=== PATIENT | male | born 1965 | race African-American/Black ===

== ENCOUNTER 2016-07-03 12:28 | Inpatient (IN) | payer OTHER ==
[2016-07-03 12:37] VITALS: BMI 27.2
--- NOTE | 2016-07-03 13:47 | HP ---
CIWA Score - CIWA Score Nausea/Vomitin-No Nausea/No Vomiting Muscle Tremors: 4-Moderate,w/Arms Extend Anxiety: 2 Agitation: 1-Slight > Activity Paroxysmal Sweats: 3 Orientation: 0-Oriented Tacttile Disturbances: 2-Mild Itch/Numbness/Burn Auditory Disturbances: 2-Mild Harshness/Frighten Visual Disturbances: 3-Moderate Sensitivity Headache: 3-Moderate CIWA-Ar Total Score: 20 Admission ROS S - HPI Chief Complaint: "I am here to stop using Alcohol and Drugs." Pt. is here to Detox from Alcohol. Allergies/Adverse Reactions: Allergies Allergy/AdvReac Type Severity Reaction Status Date / Time No Known Allergies Allergy Verified 07/03/16 12:48 History of Present Illness: Pt. is a 50 YO male here to Detox from alcohol. Pt. has had previous Detox and Rehab admissions at [facility]. Pt. also uses cocaine on an intermittent basis. Exam Limitations: No Limitations - Ebola screening Have you traveled outside of the country in the last 21 days: No Have you had contact with anyone from an Ebola affected area: No Have you been sick,other than usual withdrawal symptoms: No Do you have a fever: No - Review of Systems Constitutional: Diaphoresis, Malaise, Night Sweats, Changes in sleep, Unintentional Wgt. Loss (Lost approx. 40 lbs over last 6 months.) EENT: reports: Blurred Vision, Tearing, Other (Has Upper Denture.) Respiratory: reports: Cough, SOB with Exertion Cardiac: reports: Palpitations GI: reports: No Symptoms Reported : reports: No Symptoms Reported Musculoskeletal: reports: Back Pain, Neck Pain Integumentary: reports: No Symptoms Reported Neuro: reports: Headache, Tremors Endocrine: reports: No Symptoms Reported Hematology: reports: No Symptoms Reported Psychiatric: reports: Judgement Intact, Mood/Affect Appropiate, Orientated x3, Anxious, Depressed Other Systems: Reviewed and Negative Patient History - Patient Medical History Hx Anemia: No Hx Asthma: No Hx Chronic Obstructive Pulmonary Disease (COPD): No Hx Cancer: No Hx Cardiac Disorders: No Hx Congestive Heart Failure: No Hx Hypertension: Yes (ON MED-HYDROCHLOROTHIAZIDE) Hx Hypercholesterolemia: No Hx Pacemaker: No HX Cerebrovascular Accident: No Hx Seizures: No Hx Dementia: No Hx Diabetes: No Hx Gastrointestinal Disorders: No Hx Liver Disease: No Hx Genitourinary Disorders: No Hx Sexually Transmitted Disorders: No Hx Renal Disease (ESRD): No Hx Thyroid Disease: No Hx Human Immunodeficiency Virus (HIV): No (NEGATIVE HX) Hx Hepatitis C: No (NEVER TESTED.) Hx Depression: Yes (AND ANXIETY) Hx Suicide Attempt: No (PATIENT DENIES CURRENT SI / HI.) Hx Bipolar Disorder: No Hx Schizophrenia: No - Patient Surgical History Past Surgical History: No Hx Neurologic Surgery: No Hx Cataract Extraction: No Hx Cardiac Surgery: No Hx Lung Surgery: No Hx Breast Surgery: No Hx Breast Biopsy: No Hx Abdominal Surgery: No Hx Appendectomy: No Hx Cholecystectomy: No Hx Genitourinary Surgery: No Hx Section: No Hx Orthopedic Surgery: No Anesthesia Reaction: No - PPD History Previous Implant?: Yes Documented Results: Negative w/proof Implanted On Prior [facility] Admission?: Yes Date: 01/29/16 Results: 0 mm PPD to be Administered?: No - Reproductive History Patient is a Female of Child Bearing Age (11 -55 yrs old): No (PATIENT IS MALE.) - Smoking Cessation Smoking history: Current every day smoker Have you smoked in the past 12 months: Yes Aproximately how many cigarettes per day: 10 Cigars Per Day: 0 Hx Chewing Tobacco Use: No Initiated information on smoking cessation: Yes 'Breaking Loose' booklet given: 07/03/16 (GIVEN ON UNIT.) - Substance & Tx. History Hx Alcohol Use: Yes Hx Substance Use: Yes Substance Use Type: Alcohol, Cocaine Hx Substance Use Treatment: Yes (Previous Detox and Rehab admissions at [facility].) - Substances Abused Alcohol Route: Oral Frequency: Daily Amount used: 6 pk beer Age of first use: 15 Date of Last Use: 07/03/16 Cocaine Route: Smoking Frequency: Daily Amount used: $200 Age of first use: 17 Date of Last Use: 07/03/16 Family Disease History - Family Disease History Family History: Denies Admission Physical Exam S - Vital Signs Vital Signs: Vital Signs - 24 hr 07/03/16 12:32 Temperature 98.4 F Pulse Rate 67 Respiratory 18 Rate Blood Pressure 155/88 - Physical General Appearance: Yes: No Apparent Distress, Nourished, Appropriately Dressed , Tremorous HEENTM: Yes: Hearing grossly Normal, Normocephalic, Normal Voice, NAV, Pharynx Normal Respiratory: Yes: Chest Non-Tender, Lungs Clear, No Respiratory Distress Neck: Yes: No masses,lesions,Nodules, Supple, Trachea in good position Breast: Yes: Breast Exam Deferred Cardiology: Yes: Regular Rhythm, Regular Rate, S1, S2 Abdominal: Yes: Normal Bowel Sounds, Non Tender, Soft Genitourinary: Yes: Within Normal Limits Back: Yes: Decreased Range of Motion Musculoskeletal: Yes: Gait Steady, Back pain Extremities: Yes: Normal Range of Motion, Non-Tender, Tremors Neurological: Yes: Fully Oriented, Alert, Normal Mood/Affect, Normal Response Integumentary: Yes: Normal Color, Dry, Warm Lymphatic: Yes: Within Normal Limits - Diagnostic (1) Alcohol dependence with uncomplicated withdrawal Current Visit: Yes Status: Acute (2) Cocaine dependence, uncomplicated Current Visit: Yes Status: Acute (3) HTN (hypertension) Current Visit: Yes Status: Chronic Qualifiers: Hypertension type: essential hypertension Qualified Code(s): I10 - Essential (primary) hypertension (4) Nicotine dependence Current Visit: Yes Status: Chronic Qualifiers: Nicotine product type: cigarettes Substance use status: uncomplicated Qualified Code(s): F17.210 - Nicotine dependence, cigarettes, uncomplicated Cleared for Admission [facility] - Detox or Rehab [facility] Level of Care: Medically Managed (ADVISED PATIENT TO FOLLOW-UP WITH WELDING INSPECTOR / REHAB MEDICAL PROVIDER AFTER DISCHARGE FROM DETOX FOR GENERAL MEDICAL ASSESSMENT AND FOR HISTORY OF HYPERTENSION.) Detox Regimen/Protocol: Librium [facility] Breath Alcohol Content Breath Alcohol Content: 0 Urine Drug Screen - Results Drug Screen Negative: No Urine Drug Screen Results: KRISTA-Cocaine
[2016-07-03] MEDS ORDERED: P-EPHED 60MG/TRIPROLIDI 2.5MG TABLET PO PRN (14:05)
[2016-07-03] MEDS ORDERED: guaiFENesin/D-METHORPHAN HB 10 ML UNIT-DOSE CUPS PO PRN (14:05)
[2016-07-03] MEDS ORDERED: chlordiazePOXIDE HCL 25 MG CAPSULE PO ONE (14:05)
[2016-07-03] MEDS ORDERED: ACETAMINOPHEN 325 MG TABLET (FP) PO PRN (14:05)
[2016-07-03] MEDS ORDERED: chlordiazePOXIDE HCL 25 MG CAPSULE PO PRN (14:05)
[2016-07-03] MEDS ORDERED: IBUPROFEN 400 MG TABLET (FP) PO PRN (14:05)
[2016-07-03] MEDS ORDERED: MENTHOL/PHENOL 1 EACH UD MM PRN (14:05)
[2016-07-03] MEDS ORDERED: MAGNESIUM CITRATE 300 ML BOTTLE PO PRN (14:05)
[2016-07-03] MEDS ORDERED: MAGNESIUM HYDROX 2400MG/30ML ORAL SUSPENSION 30 ML CUP PO PRN (14:05)
[2016-07-03] MEDS ORDERED: diphenhydrAMINE HCL 50 MG CAPSULE PO PRN (14:05)
[2016-07-03] MEDS ORDERED: LOPERAMIDE HCL 2 MG CAPSULE PO PRN (14:05)
[2016-07-03] MEDS ORDERED: hydrOXYzine PAMOATE 50 MG CAPSULE (FP) PO PRN (14:05)
[2016-07-03] MEDS ORDERED: MAG HYDROX/AL HYDROX/SIMETH 30 ML UNIT-DOSE CUP PO PRN (14:05)
[2016-07-03] MEDS ORDERED: amLODIPine BESYLATE 5 MG TABLET (FP) PO SCH (14:15)
[2016-07-03] MEDS ORDERED: HYDROCHLOROTHIAZIDE 12.5 MG CAPSULE (FP) PO SCH (14:15)
[2016-07-03] MEDS: chlordiazePOXIDE HCL 25 MG CAPSULE PO SCH ×2 (17:44→22:07)
[2016-07-03] MEDS ORDERED: THIAMINE HCL 100 MG TABLET (FP) PO SCH (22:00)
[2016-07-04] MEDS: chlordiazePOXIDE HCL 25 MG CAPSULE PO SCH (05:40)
[2016-07-04 06:15] VITALS: BP 156/100; PULSE 54; TEMP 96.7
[2016-07-04] MEDS ORDERED: PRENATAL VITAMINS W/ FOLIC ACID TABLET (FP) PO SCH (10:00)
[2016-07-04 10:20] LABS: MCH 29.5 pg (25.7-33.7); MCHC 33.3 g/dl (32.0-35.9); MEAN CELL VOLUME 88.5 fl (80-96); MEAN PLT VOLUME 10.6 fl (7.5-11.1); PLATELET COUNT 140 K/MM3 (134-434); WHITE BLOOD COUNT 3.9 K/mm3 (4.0-10.0)
[2016-07-04 10:22] LABS: ALBUMIN 3.4 g/dl (3.4-5.0); BILIRUBIN,TOTAL 0.9 mg/dL (0.2-1.0); CALCIUM 8.7 mg/dL (8.5-10.1); CREATININE 1.3 mg/dL (0.7-1.3); TOT PROT 6.5 g/dl (6.4-8.2)
[2016-07-04 11:24] LABS: HIV 1 & 2 AB NEGATIVE; HIV 1 AGp24 NEGATIVE
--- NOTE | 2016-07-04 12:18 | DS ---
[facility] Detox Discharge Summary Admission Date: 07/03/16 Discharge Date: 07/04/16 - History Present History: Alcohol Dependence Pertinent Past History: HTN - Physical Exam Results Vital Signs: Vital Signs Temperature 96.7 F L 07/04/16 06:15 Pulse Rate 54 L 07/04/16 06:15 Respiratory Rate 18 07/04/16 06:15 Blood Pressure 156/100 07/04/16 06:15 O2 Sat by Pulse Oximetry (%) Pertinent Admission Physical Exam Findings: Withdrawal symptoms HTN, uncontrolled: offered standing dose of HCTZ and norvasc prior to leaving Laboratory Tests 07/04/16 07/04/16 07/04/16 08:00 08:00 08:00 WBC 3.9 L RBC 4.81 Hgb 14.2 Hct 42.5 MCV 88.5 MCHC 33.3 RDW 13.0 Plt Count 140 MPV 10.6 Sickle Cell Screen Sodium 142 Potassium 4.2 Chloride 104 Carbon Dioxide 30 Anion Gap 8 BUN 16 D Creatinine 1.3 Creat Clearance w eGFR 58.67 Random Glucose 91 Calcium 8.7 Total Bilirubin 0.9 AST 20 ALT 24 Alkaline Phosphatase 68 Total Protein 6.5 Albumin 3.4 RPR Titer HIV 1&2 Antibody Screen Negative HIV P24 Antigen Negative 07/04/16 07/04/16 08:00 08:20 WBC RBC Hgb Hct MCV MCHC RDW Plt Count MPV Sickle Cell Screen Negative Sodium Potassium Chloride Carbon Dioxide Anion Gap BUN Creatinine Creat Clearance w eGFR Random Glucose Calcium Total Bilirubin AST ALT Alkaline Phosphatase Total Protein Albumin RPR Titer Nonreactive HIV 1&2 Antibody Screen HIV P24 Antigen Labs noted - Medication Discharge Medications: Ambulatory Orders Amlodipine Besylate [Norvasc -] 5 mg PO DAILY #30 tablet 01/30/16 Hydrochlorothiazide [Hctz -] 12.5 mg PO DAILY #30 cap 01/30/16 - Diagnosis (1) Alcohol dependence with uncomplicated withdrawal Status: Acute (2) HTN (hypertension) Status: Chronic Qualifiers: Hypertension type: essential hypertension Qualified Code(s): I10 - Essential (primary) hypertension - AMA Did Patient Leave Against Medical Advice: No (Administratively discharged due to fighting on unit with peer)
[2016-07-04] MEDS ORDERED: chlordiazePOXIDE HCL 25 MG CAPSULE PO SCH (17:00)
--- NOTE | 2016-07-04 22:27 | EKG ---
Test Reason : Blood Pressure : / mmHG Vent. Rate : 059 BPM Atrial Rate : 059 BPM P-R Int : 140 ms QRS Dur : 088 ms QT Int : 418 ms P-R-T Axes : 025 033 024 degrees QTc Int : 413 ms SINUS BRADYCARDIA NONSPECIFIC ST ABNORMALITY INFERIOR LEADS T WAVE ABNORMALITY, CONSIDER ANTEROLATERAL ISCHEMIA ABNORMAL ECG NO PREVIOUS ECGS AVAILABLE Confirmed by SUKHJINDER MONTES MD ([id number]) on 07/04/2016 10:26:32 PM Referred By: Confirmed By:SUKHJINDER MONTES MD
[2016-07-05] MEDS ORDERED: chlordiazePOXIDE 5 MG CAPSULE PO SCH (17:00)
[2016-07-06] MEDS ORDERED: chlordiazePOXIDE HCL 10 MG CAPSULE PO SCH (17:00)
== END 2016-07-04 08:34 | disposition home or self-care (01) | DRG 774 ==
LOC: YASAS 12:28 → Y3N 13:45
PROVIDERS: ADMIT Internal Medicine; ATTEND Internal Medicine
PROC: HZ2ZZZZ Detoxification Services for Substance Abuse Treatment (ICD-10-PCS; principal; 2016-07-04)
DX: F10.230 Alcohol dependence with withdrawal, uncomplicated (principal); F14.20 Cocaine dependence, uncomplicated; F17.210 Nicotine dependence, cigarettes, uncomplicated; I10 Essential (primary) hypertension; F91.8 Other conduct disorders
CPT/HCPCS: 36415; 80053; 85027; 85660; 86593; 87389; 93005; 93010

== ENCOUNTER 2016-11-29 12:32 | Inpatient (IN) | payer OTHER ==
[2016-11-29 13:19] VITALS: BMI 27.2
--- NOTE | 2016-11-29 15:18 | HP ---
CIWA Score - CIWA Score Nausea/Vomitin-No Nausea/No Vomiting Muscle Tremors: 4-Moderate,w/Arms Extend Anxiety: 3 Agitation: 4-Moderately Restless Paroxysmal Sweats: 3 Orientation: 0-Oriented Tacttile Disturbances: 0-None Auditory Disturbances: 0-None Visual Disturbances: 0-None Headache: 2-Mild CIWA-Ar Total Score: 16 Admission ROS BHS - HPI Chief Complaint: I am here to get the help I need. Allergies/Adverse Reactions: Allergies Allergy/AdvReac Type Severity Reaction Status Date / Time No Known Allergies Allergy Verified 11/29/16 14:46 History of Present Illness: pt is a 50yr old male with a history of alcohol and cocaine dependence seeking detox for treatment. Exam Limitations: No Limitations - Ebola screening Have you traveled outside of the country in the last 21 days: No Have you had contact with anyone from an Ebola affected area: No Have you been sick,other than usual withdrawal symptoms: No Do you have a fever: No - Review of Systems Constitutional: Chills, Diaphoresis, Loss of Appetite, Night Sweats EENT: reports: No Symptoms Reported Respiratory: reports: No Symptoms reported Cardiac: reports: No Symptoms Reported GI: reports: Diarrhea, Poor Fluid Intake, Indigestion : reports: No Symptoms Reported Musculoskeletal: reports: Back Pain, Muscle Pain Integumentary: reports: Flushing, Sweating Neuro: reports: Headache, Tingling, Tremors Endocrine: reports: Excessive Sweating, Flushing, Intolerance to Cold, Intolerance to Heat Hematology: reports: No Symptoms Reported Psychiatric: reports: Judgement Intact, Mood/Affect Appropiate, Orientated x3, Agitated, Anxious Other Systems: Reviewed and Negative Patient History - Patient Medical History Hx Anemia: No Hx Asthma: No Hx Chronic Obstructive Pulmonary Disease (COPD): No Hx Cancer: No Hx Cardiac Disorders: No Hx Congestive Heart Failure: No Hx Hypertension: No Hx Hypercholesterolemia: No Hx Pacemaker: No HX Cerebrovascular Accident: No Hx Seizures: No Hx Dementia: No Hx Diabetes: No Hx Gastrointestinal Disorders: No Hx Liver Disease: No Hx Genitourinary Disorders: No Hx Sexually Transmitted Disorders: No Hx Renal Disease (ESRD): No Hx Thyroid Disease: No Hx Human Immunodeficiency Virus (HIV): No (NEGATIVE HX) Hx Hepatitis C: No Hx Depression: Yes Hx Suicide Attempt: No Hx Bipolar Disorder: No Hx Schizophrenia: No Other Medical History: insomnia - Patient Surgical History Past Surgical History: No Hx Neurologic Surgery: No Hx Cataract Extraction: No Hx Cardiac Surgery: No Hx Lung Surgery: No Hx Breast Surgery: No Hx Breast Biopsy: No Hx Abdominal Surgery: No Hx Appendectomy: No Hx Cholecystectomy: No Hx Genitourinary Surgery: No Hx Section: No Hx Orthopedic Surgery: No Anesthesia Reaction: No - PPD History Previous Implant?: Yes Documented Results: Negative w/proof Implanted On Prior [facility] Admission?: Yes Date: 01/29/16 Results: 0 mm PPD to be Administered?: No - Reproductive History Patient is a Female of Child Bearing Age (11 -55 yrs old): No - Smoking Cessation Smoking history: Current every day smoker Have you smoked in the past 12 months: Yes Aproximately how many cigarettes per day: 10 Cigars Per Day: 0 Hx Chewing Tobacco Use: No Initiated information on smoking cessation: Yes 'Breaking Loose' booklet given: 11/29/16 - Substance & Tx. History Hx Substance Use: Yes Substance Use Type: Alcohol, Cocaine Hx Substance Use Treatment: Yes ([facility] detox 2017) - Substances Abused Crack Route: Smoking Frequency: Daily Amount used: $150 Age of first use: 22 Date of Last Use: 11/28/16 Alcohol-beer/vodka Route: Oral Frequency: Daily Amount used: 2-6 pks./1 pt. Age of first use: 13 Date of Last Use: 11/29/16 Family Disease History - Family Disease History Family Disease History: Other: Father (etoh) Admission Physical Exam BHS - Vital Signs Vital Signs: Vital Signs - 24 hr 11/29/16 13:16 Temperature 98.9 F Pulse Rate 66 Respiratory 18 Rate Blood Pressure 146/88 - Physical General Appearance: Yes: Appropriately Dressed, Moderate Distress, Tremorous, Irritable, Sweating, Anxious HEENTM: Yes: Hearing grossly Normal, Normal Voice Respiratory: Yes: Lungs Clear, Normal Breath Sounds, No Respiratory Distress Neck: Yes: Within Normal Limits Breast: Yes: Within Normal Limits Cardiology: Yes: Regular Rhythm, Regular Rate, S1, S2 Abdominal: Yes: Normal Bowel Sounds, Non Tender, Soft Genitourinary: Yes: Within Normal Limits Back: Yes: Normal Inspection Musculoskeletal: Yes: full range of Motion Extremities: Yes: Normal Capillary Refill, Normal Inspection, Tremors Neurological: Yes: Fully Oriented, Alert, Normal Response Integumentary: Yes: Normal Color, Diaphoresis Lymphatic: Yes: Within Normal Limits - Diagnostic (1) Alcohol dependence with uncomplicated withdrawal Current Visit: Yes Status: Chronic (2) Cocaine dependence, uncomplicated Current Visit: Yes Status: Chronic (3) HTN (hypertension) Current Visit: Yes Status: Chronic Qualifiers: Hypertension type: essential hypertension Qualified Code(s): I10 - Essential (primary) hypertension (4) Nicotine dependence Current Visit: Yes Status: Chronic Qualifiers: Nicotine product type: cigarettes Substance use status: uncomplicated Qualified Code(s): F17.210 - Nicotine dependence, cigarettes, uncomplicated (5) Depression (emotion) Current Visit: No Status: Suspected Qualifiers: Depression Type: dysthymia Qualified Code(s): F34.1 - Dysthymic disorder Cleared for Admission S - Detox or Rehab [facility] Level of Care: Medically Managed Detox Regimen/Protocol: Librium [facility] Breath Alcohol Content Breath Alcohol Content: 0.025 Urine Drug Screen - Results Drug Screen Negative: No Urine Drug Screen Results: KRISTA-Cocaine
[2016-11-29] MEDS ORDERED: MAGNESIUM HYDROX 2400MG/30ML ORAL SUSPENSION 30 ML CUP PO PRN (15:20)
[2016-11-29] MEDS ORDERED: IBUPROFEN 400 MG TABLET (FP) PO PRN (15:20)
[2016-11-29] MEDS ORDERED: MENTHOL/PHENOL 1 EACH UD MM PRN (15:20)
[2016-11-29] MEDS ORDERED: MAG HYDROX/AL HYDROX/SIMETH 30 ML UNIT-DOSE CUP PO PRN (15:20)
[2016-11-29] MEDS ORDERED: LOPERAMIDE HCL 2 MG CAPSULE PO PRN (15:20)
[2016-11-29] MEDS ORDERED: chlordiazePOXIDE HCL 25 MG CAPSULE PO PRN (15:20)
[2016-11-29] MEDS ORDERED: guaiFENesin/D-METHORPHAN HB 10 ML UNIT-DOSE CUPS PO PRN (15:20)
[2016-11-29] MEDS ORDERED: ACETAMINOPHEN 325 MG TABLET (FP) PO PRN (15:20)
[2016-11-29] MEDS ORDERED: P-EPHED 60MG/TRIPROLIDI 2.5MG TABLET PO PRN (15:20)
[2016-11-29] MEDS ORDERED: NICOTINE POLACRILEX 4 MG GUM BUC PRN (15:20)
[2016-11-29] MEDS ORDERED: hydrOXYzine PAMOATE 50 MG CAPSULE (FP) PO PRN (15:20)
[2016-11-29] MEDS ORDERED: MAGNESIUM CITRATE 300 ML BOTTLE PO PRN (15:20)
[2016-11-29] MEDS ORDERED: chlordiazePOXIDE HCL 25 MG CAPSULE PO ONE (15:43)
[2016-11-29] MEDS: chlordiazePOXIDE HCL 25 MG CAPSULE PO SCH ×2 (17:49→22:53)
[2016-11-29] MEDS: THIAMINE HCL 100 MG TABLET (FP) PO SCH (22:53)
[2016-11-29] MEDS: diphenhydrAMINE HCL 50 MG CAPSULE PO PRN (22:54)
[2016-11-30] MEDS: chlordiazePOXIDE HCL 25 MG CAPSULE PO SCH ×4 (05:17→22:06)
[2016-11-30] MEDS: HYDROCHLOROTHIAZIDE 12.5 MG CAPSULE (FP) PO SCH (11:33)
[2016-11-30] MEDS: PRENATAL VITAMINS W/ FOLIC ACID TABLET (FP) PO SCH (11:33)
[2016-11-30] MEDS: amLODIPine BESYLATE 5 MG TABLET (FP) PO SCH (11:33)
[2016-11-30] MEDS: NICOTINE 21 MG/24 HOURS TOPICAL PATCH TD SCH (11:33)
--- NOTE | 2016-11-30 11:39 | PN ---
S CIWA - CIWA Score Nausea/Vomitin Muscle Tremors: 3 Anxiety: 3 Agitation: 2 Paroxysmal Sweats: 1-Minimal Palms Moist Orientation: 0-Oriented Tacttile Disturbances: 1-Very Mild Itch/Numbness Auditory Disturbances: 1-Very Mild Visual Disturbances: 1-Very Mild Sensitivity Headache: 2-Mild CIWA-Ar Total Score: 17 BHS Progress Note (SOAP) Subjective: ALERT,IRRITABLE,ANXIOUS,INTERRUPTED SLEEP,TREMOR Objective: 11/30/16 11:36 Vital Signs Temperature 98.1 F 11/30/16 06:11 Pulse Rate 50 L 11/30/16 06:11 Respiratory Rate 16 11/30/16 06:11 Blood Pressure 146/90 11/30/16 06:11 O2 Sat by Pulse Oximetry (%) EKG SINUS BRADYCARDIA 54/MIN INVERTED T IN 3 NO CHEST PAIN,NO SOB,NO DIZZINESS LABS PENDING Assessment: 11/30/16 11:38 WITHDRAWAL SYMPTOM Plan: CONTINUE DETOX
[2016-11-30 11:54] LABS: ALBUMIN 3.4 g/dl (3.4-5.0); ALK PHOS 79 U/L (45-117); ANION GAP 8 (8-16); BILIRUBIN,TOTAL 0.8 mg/dL (0.2-1.0); CALCIUM 8.7 mg/dL (8.5-10.1); CO2 27 mmol/L (21-32); CREATININE 1.2 mg/dL (0.7-1.3); GLUCOSE,RANDOM 91 mg/dL (74-106); SGOT/AST 19 U/L (15-37); SGPT/ALT 23 U/L (12-78); TOT PROT 6.2 g/dl (6.4-8.2)
--- NOTE | 2016-11-30 14:21 | EKG ---
Test Reason : Blood Pressure : / mmHG Vent. Rate : 054 BPM Atrial Rate : 054 BPM P-R Int : 138 ms QRS Dur : 096 ms QT Int : 438 ms P-R-T Axes : 030 022 018 degrees QTc Int : 415 ms SINUS BRADYCARDIA NONSPECIFIC ST AND T WAVE ABNORMALITY ABNORMAL ECG WHEN COMPARED WITH ECG OF 03-JUL-2016 15:14, ST NO LONGER ELEVATED IN LATERAL LEADS REPEAT EKG IF CLINICALLY INDICATED Confirmed by ZULY ORTIZ MD ([id number]) on 11/30/2016 2:21:32 PM Referred By: Confirmed By:ZULY ORTIZ MD
[2016-11-30 14:47] LABS: MCH 29.2 pg (25.7-33.7); MCHC 32.8 g/dl (32.0-35.9); MEAN CELL VOLUME 88.9 fl (80-96); MEAN PLT VOLUME 10.1 fl (7.5-11.1); PLATELET COUNT 157 K/MM3 (134-434); RDW 13.4 % (11.9-15.9); WHITE BLOOD COUNT 4.7 K/mm3 (4.0-10.0)
--- NOTE | 2016-11-30 15:16 | CONSULT ---
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 Substance Abuse History: Discussed with the patient.Mr Pillai confirms this report : Smoking Cessation. Smoking history: Current every day smoker. Have you smoked in the past 12 months: Yes. Aproximately how many cigarettes per day : 10. Cigars Per Day: 0. Hx Chewing Tobacco Use: No. Initiated information on smoking cessation: Yes. 'Breaking Loose' booklet given: 11/29/16. - Substance & Tx. History. Hx Substance Use: Yes. Substance Use Type: Alcohol, Cocaine. Hx Substance Use Treatment: Yes ([facility] detox 2017). - Substances Abused. Crack. Route: Smoking. Frequency: Daily. Amount used: $150. Age of first use: 22. Date of Last Use: 11/28/16. Alcohol-beer/ vodka. Route: Oral. Frequency: Daily. Amount used: 2-6 pks./1 pt. Age of first use: 13. Date of Last Use: 11/29/16 Medical History: Hypertension. Psychiatric History: Patient denies. Physical/Sexual Abuse/Trauma History: Patient denies. Additional Comment: Urine Drug Screen Results: KRISTA-Cocaine.Noted. Mental Status Exam - Mental Status Exam Alert and Oriented to: Time, Place, Person Cognitive Function: Good Patient Appearance: Well Groomed Mood: Euthymic Affect: Appropriate, Normal Range Patient Behavior: Appropriate, Cooperative Speech Pattern: Clear Voice Loudness: Normal Thought Process: Goal Oriented Thought Disorder: Not Present Hallucinations: Denies Suicidal Ideation: Denies Homicidal Ideation: Denies Insight/Judgement: Poor Sleep: Well Appetite: Good Muscle strength/Tone: Normal Gait/Station: Normal Psychiatric Findings - Problem List ([place] 1, 2,3) (1) Alcohol dependence with uncomplicated withdrawal Current Visit: Yes Status: Acute (2) Cocaine dependence, uncomplicated Current Visit: Yes Status: Acute (3) Nicotine dependence Current Visit: Yes Status: Acute Qualifiers: Nicotine product type: cigarettes Substance use status: uncomplicated Qualified Code(s): F17.210 - Nicotine dependence, cigarettes, uncomplicated (4) HTN (hypertension) Current Visit: Yes Status: Chronic Qualifiers: Hypertension type: essential hypertension Qualified Code(s): I10 - Essential (primary) hypertension - Initial Treatment Plan Initial Treatment Plan: Psychoeducation offered : patient responds with total indifference.Detoxification is under way.Observation.
[2016-11-30] MEDS: diphenhydrAMINE HCL 50 MG CAPSULE PO PRN (22:06)
[2016-11-30] MEDS: THIAMINE HCL 100 MG TABLET (FP) PO SCH (22:06)
[2016-12-01] MEDS: chlordiazePOXIDE HCL 25 MG CAPSULE PO SCH ×2 (06:33→10:39)
--- NOTE | 2016-12-01 10:08 | PN ---
S CIWA - CIWA Score Nausea/Vomitin Muscle Tremors: 3 Anxiety: 2 Agitation: 2 Paroxysmal Sweats: 1-Minimal Palms Moist Orientation: 0-Oriented Tacttile Disturbances: 1-Very Mild Itch/Numbness Auditory Disturbances: 1-Very Mild Visual Disturbances: 1-Very Mild Sensitivity Headache: 2-Mild CIWA-Ar Total Score: 16 S Progress Note (SOAP) Subjective: alert,irritable,anxious,interrupted sleep,tremor, Objective: 12/01/16 10:07 Vital Signs Temperature 98.2 F 12/01/16 10:03 Pulse Rate 56 L 12/01/16 10:03 Respiratory Rate 20 12/01/16 10:03 Blood Pressure 155/104 12/01/16 10:03 O2 Sat by Pulse Oximetry (%) Laboratory Last Values WBC 4.7 K/mm3 (4.0-10.0) 11/30/16 06:30 RBC 4.66 M/mm3 (4.00-5.60) 11/30/16 06:30 Hgb 13.6 GM/dL (11.7-16.9) 11/30/16 06:30 Hct 41.4 % (35.4-49) 11/30/16 06:30 MCV 88.9 fl (80-96) 11/30/16 06:30 MCH 29.2 pg (25.7-33.7) 11/30/16 06:30 MCHC 32.8 g/dl (32.0-35.9) 11/30/16 06:30 RDW 13.4 % (11.9-15.9) 11/30/16 06:30 Plt Count 157 K/MM3 (134-434) 11/30/16 06:30 MPV 10.1 fl (7.5-11.1) 11/30/16 06:30 Sodium 140 mmol/L (136-145) 11/30/16 06:30 Potassium 4.3 mmol/L (3.5-5.1) 11/30/16 06:30 Chloride 105 mmol/L (98-107) 11/30/16 06:30 Carbon Dioxide 27 mmol/L (21-32) 11/30/16 06:30 Anion Gap 8 (8-16) 11/30/16 06:30 BUN 19 mg/dL (7-18) H 11/30/16 06:30 Creatinine 1.2 mg/dL (0.7-1.3) 11/30/16 06:30 Creat Clearance w eGFR > 60 (>60) 11/30/16 06:30 Random Glucose 91 mg/dL (74-106) 11/30/16 06:30 Calcium 8.7 mg/dL (8.5-10.1) 11/30/16 06:30 Total Bilirubin 0.8 mg/dL (0.2-1.0) 11/30/16 06:30 AST 19 U/L (15-37) 11/30/16 06:30 ALT 23 U/L (12-78) 11/30/16 06:30 Alkaline Phosphatase 79 U/L (45-117) 11/30/16 06:30 Total Protein 6.2 g/dl (6.4-8.2) L 11/30/16 06:30 Albumin 3.4 g/dl (3.4-5.0) 11/30/16 06:30 RPR Titer Nonreactive (NONREACTIVE) 11/30/16 06:30 Assessment: 12/01/16 10:08 withdrawal symptom Plan: continue detox
[2016-12-01] MEDS: amLODIPine BESYLATE 5 MG TABLET (FP) PO SCH (10:39)
[2016-12-01] MEDS: HYDROCHLOROTHIAZIDE 12.5 MG CAPSULE (FP) PO SCH (10:39)
[2016-12-01] MEDS: PRENATAL VITAMINS W/ FOLIC ACID TABLET (FP) PO SCH (10:39)
[2016-12-01] MEDS: NICOTINE 21 MG/24 HOURS TOPICAL PATCH TD SCH (10:40)
[2016-12-01] MEDS: chlordiazePOXIDE 5 MG CAPSULE PO SCH ×2 (16:29→22:33)
[2016-12-01] MEDS: THIAMINE HCL 100 MG TABLET (FP) PO SCH (22:33)
[2016-12-01] MEDS: diphenhydrAMINE HCL 50 MG CAPSULE PO PRN (22:33)
[2016-12-02] MEDS: chlordiazePOXIDE 5 MG CAPSULE PO SCH (06:08)
--- NOTE | 2016-12-02 08:25 | PN ---
S Progress Note (SOAP) Subjective: ALERT,NO COMPLAINT Objective: 12/02/16 08:23 Vital Signs Temperature 97.7 F 12/02/16 06:11 Pulse Rate 60 12/02/16 06:11 Respiratory Rate 16 12/02/16 06:11 Blood Pressure 138/90 12/02/16 06:11 O2 Sat by Pulse Oximetry (%) Assessment: 12/02/16 08:23 NO WITHDRAWAL SYMPTOM Plan: STABLE FOR DISCHARGE TODAY,FOLLOW UP WITH AFTER CARE PROGRAM ARRANGEMENT
--- NOTE | 2016-12-02 08:28 | DS ---
[facility] Detox Discharge Summary Admission Date: 11/29/16 Discharge Date: 12/02/16 - History Present History: Alcohol Dependence, Cocaine Dependence Additional Comments: FOLLOW UP WITH AFTER CARE PROGRAM ARRANGEMENT Pertinent Past History: HYPERTENSION NICOTINE DEPENDENCE DEPRESSION - Physical Exam Results Vital Signs: Vital Signs Temperature 97.7 F 12/02/16 06:11 Pulse Rate 60 12/02/16 06:11 Respiratory Rate 16 12/02/16 06:11 Blood Pressure 138/90 12/02/16 06:11 O2 Sat by Pulse Oximetry (%) Pertinent Admission Physical Exam Findings: WITHDRAWAL SYMPTOM - Treatment Hospital Course: Detox Protocol Followed, Detoxed Safely, Responded well, Discharged Condition Good Patient has Accepted a Rehab Referral to: DECLINED - Medication Discharge Medications: Ambulatory Orders Amlodipine Besylate [Norvasc -] 5 mg PO DAILY #30 tablet 01/30/16 Hydrochlorothiazide [Hctz -] 12.5 mg PO DAILY #30 cap 01/30/16 - Diagnosis (1) Alcohol dependence with uncomplicated withdrawal Current Visit: Yes Status: Acute (2) Cocaine dependence, uncomplicated Current Visit: Yes Status: Acute (3) Nicotine dependence Current Visit: Yes Status: Acute Qualifiers: Nicotine product type: cigarettes Substance use status: uncomplicated Qualified Code(s): F17.210 - Nicotine dependence, cigarettes, uncomplicated (4) HTN (hypertension) Current Visit: Yes Status: Chronic Qualifiers: Hypertension type: essential hypertension Qualified Code(s): I10 - Essential (primary) hypertension (5) Alcohol-induced sleep disorder Current Visit: No Status: Acute (6) Substance-induced sleep disorder Current Visit: No Status: Acute (7) Alcohol-induced mood disorder Current Visit: No Status: Suspected (8) Depression (emotion) Current Visit: No Status: Suspected Qualifiers: Depression Type: dysthymia Qualified Code(s): F34.1 - Dysthymic disorder - AMA Did Patient Leave Against Medical Advice: No
[2016-12-02 09:28] VITALS: BP 153/98; PULSE 55; TEMP 97.9
[2016-12-02] MEDS ORDERED: chlordiazePOXIDE HCL 10 MG CAPSULE PO SCH (17:00)
== END 2016-12-02 08:50 | disposition home or self-care (01) | DRG 774 ==
LOC: YASAS 12:32 → Y6N 15:37
PROVIDERS: ADMIT Internal Medicine; ATTEND Internal Medicine
PROC: HZ2ZZZZ Detoxification Services for Substance Abuse Treatment (ICD-10-PCS; principal; 2016-11-29)
DX: F10.230 Alcohol dependence with withdrawal, uncomplicated (principal); F10.24 Alcohol dependence with alcohol-induced mood disorder; F10.282 Alcohol dependence with alcohol-induced sleep disorder; F14.20 Cocaine dependence, uncomplicated; F17.210 Nicotine dependence, cigarettes, uncomplicated; F19.282 Other psychoactive substance dependence with psychoactive substance-induced sleep disorder; F34.1 Dysthymic disorder; I10 Essential (primary) hypertension; R00.1 Bradycardia, unspecified
CPT/HCPCS: 36415; 80053; 85027; 86593; 93005; 93010

== ENCOUNTER 2017-04-21 15:38 | Emergency (ER) | payer OTHER ==
[2017-04-21 15:48] VITALS: BP 157/92; PULSE 73; TEMP 98.9; BMI 26.5
--- NOTE | 2017-04-21 16:24 | PDOC ---
History of Present Illness - General Chief Complaint: Laceration Stated Complaint: Laceration Time Seen by Provider: 04/21/17 15:51 History Source: Patient Exam Limitations: No Limitations - History of Present Illness Initial Comments: 04/21/17 16:19 trip and fall injured chin . no loc lac to chin and abrasion to the right cheek. Timing/Duration: reports: just prior to arrival Severity: Yes: mild Location: reports: face Past History - Past Medical History Allergies/Adverse Reactions: Allergies Allergy/AdvReac Type Severity Reaction Status Date / Time No Known Allergies Allergy Verified 04/21/17 15:46 Home Medications: Ambulatory Orders Amlodipine Besylate [Norvasc -] 5 mg PO DAILY #30 tablet 12/02/16 Hydrochlorothiazide [Hctz -] 12.5 mg PO DAILY #30 cap 12/02/16 Anemia: No Asthma: No Cancer: No Cardiac Disorders: No CVA: No COPD: No CHF: No Dementia: No Diabetes: No GI Disorders: No Disorders: No HTN: No Hypercholesterolemia: No Kidney Stones: No Liver Disease: No Seizures: No Thyroid Disease: No - Surgical History Abdominal Surgery: No Appendectomy: No Cardiac Surgery: No Cholecystectomy: No Lung Surgery: No Neurologic Surgery: No Orthopedic Surgery: No - Reproductive History Testicular Surgery: No - Suicide/Smoking/Psychosocial Hx Smoking History: Current every day smoker Have you smoked in the past 12 months: Yes Number of Cigarettes Smoked Daily: 5 Cigars Per Day: 0 Information on smoking cessation initiated: No 'Breaking Loose' booklet given: 03/16/17 Hx Alcohol Use: No Drug/Substance Use Hx: No Substance Use Type: None Hx Substance Use Treatment: Yes ([facility] detox 2017) *Physical Exam - Vital Signs Last Vital Signs Temp Pulse Resp BP Pulse Ox 98.9 F 73 20 157/92 99 04/21/17 15:46 04/21/17 15:46 04/21/17 15:46 04/21/17 15:46 04/21/17 15:46 - Physical Exam General Appearance: Yes: Nourished, Appropriately Dressed HEENT: positive: EOMI, NAV Neck: positive: Supple. negative: Tender Respiratory/Chest: positive: Lungs Clear, Normal Breath Sounds. negative: Chest Tender Cardiovascular: positive: Regular Rhythm, Regular Rate Integumentary: positive: Normal Color, Dry, Warm, Other (laceration to chin, abrasion to right cheek ) Neurologic: positive: Fully Oriented, Alert, Normal Mood/Affect, Normal Response , Motor Strength 5/5 Procedures - Laceration/Wound Repair Face Wound Length: 2.6 to 5.0 cm Wound Explored: clean Wound's Depth, Shape: into muscle, linear Irrigated w/ Saline: Yes Betadine Prep: Yes Anesthesia: 1% Lidocaine w/ Epi Amount of Anesthetic (ccs): 3 Wound Repaired With: Sutures Suture Size/Type: 4:0, nylon Number of Sutures: 6 Layer Closure: No Sterile Dressing Applied: Yes Medical Decision Making - Medical Decision Making 04/21/17 16:27 cc: mechanical trip and fall lac to chin pt denies LOC denies dental trauma abrasion to the cheek, lac to the chin inside lower lip with superficial abrasion/laceration no active bleeding sutured closed wound care to the abrasions to cheek bacitracin placed pt states his tetanus is UTD *DC/Admit/Observation/Transfer Diagnosis at time of Disposition: Abrasion, Laceration - Discharge Dispostion Disposition: HOME Condition at time of disposition: Good - Referrals - Patient Instructions Printed Discharge Instructions: DI for Laceration Repair Additional Instructions: keep clean and dry apply bacitracin ointment once a day to the abrasions and laceration 7 days return for suture removal to the chin - Post Discharge Activity
== END 2017-04-21 16:53 | disposition home or self-care (01) ==
LOC: JERFT 15:38
PROC: 0JQ10ZZ Repair Face Subcutaneous Tissue and Fascia, Open Approach (ICD-10-PCS; principal; 2017-04-21)
DX: S01.81XA Laceration without foreign body of other part of head, initial encounter (principal); S00.81XA Abrasion of other part of head, initial encounter; W18.39XA Other fall on same level, initial encounter; Y93.89 Activity, other specified; Y92.89 Other specified places as the place of occurrence of the external cause; Y99.8 Other external cause status
CPT/HCPCS: 99281-25

== ENCOUNTER 2017-07-17 08:51 | Inpatient (IN) | payer OTHER ==
[2017-07-17 09:27] VITALS: BMI 28.7
--- NOTE | 2017-07-17 10:15 | HP ---
CIWA Score - CIWA Score Nausea/Vomitin Muscle Tremors: 3 Anxiety: 3 Agitation: 3 Paroxysmal Sweats: 1-Minimal Palms Moist Orientation: 0-Oriented Tacttile Disturbances: 2-Mild Itch/Numbness/Burn Auditory Disturbances: 2-Mild Harshness/Frighten Visual Disturbances: 0-None Headache: 2-Mild CIWA-Ar Total Score: 19 Admission ROS BHS - HPI Chief Complaint: i need help to stop drinking alcohol and cocaine Allergies/Adverse Reactions: Allergies Allergy/AdvReac Type Severity Reaction Status Date / Time No Known Allergies Allergy Verified 07/17/17 09:13 History of Present Illness: THIS 51 YEARS OLD MALE WITH ALCOHOL AND COCAINE DEPENDENCE,SEEKING DETOX, WITHDRAWAL SYMPTOM,LAST TREATMENT ARMS AND ACRES IN 05/19 MULTIPLE ADMISSIONS IN DETOX HYPERTENSION DEPRESSION NICOTINE DEPENDENCE LONGEST PERIOD OF SOBRIETY 4 YEARS SURGERY OF FX OF RIGHT MALCOLM IN 05/19,LIPOMA OF SCALP 06/19 Exam Limitations: No Limitations - Ebola screening Have you traveled outside of the country in the last 21 days: No (N) Have you had contact with anyone from an Ebola affected area: No Have you been sick,other than usual withdrawal symptoms: No Do you have a fever: No - Review of Systems Constitutional: Loss of Appetite, Malaise, Night Sweats, Changes in sleep, Weakness EENT: reports: Nose Congestion Cardiac: reports: No Symptoms Reported GI: reports: Diarrhea, Nausea, Vomiting, Abdominal cramping : reports: No Symptoms Reported Musculoskeletal: reports: Back Pain, Muscle Pain Integumentary: reports: Dryness Neuro: reports: Headache, Tremors Endocrine: reports: No Symptoms Reported Hematology: reports: No Symptoms Reported Psychiatric: reports: No Sypmtoms Reported, Judgement Intact, Mood/Affect Appropiate, Orientated x3, Depressed Patient History - Patient Medical History Hx Anemia: No Hx Asthma: No Hx Chronic Obstructive Pulmonary Disease (COPD): No Hx Cancer: No Hx Cardiac Disorders: No Hx Congestive Heart Failure: No Hx Hypertension: Yes (NON COMLIANCE DID NOT TAKE MADICATION FOR 6 WEEKS) Hx Hypercholesterolemia: No Hx Pacemaker: No HX Cerebrovascular Accident: No Hx Seizures: No Hx Dementia: No Hx Diabetes: No Hx Gastrointestinal Disorders: No Hx Liver Disease: No Hx Genitourinary Disorders: No Hx Sexually Transmitted Disorders: No Hx Renal Disease (ESRD): No Hx Thyroid Disease: No Hx Human Immunodeficiency Virus (HIV): No (NEGATIVE HX LAST 2012) Hx Hepatitis C: No Hx Depression: Yes (NO MED) Hx Suicide Attempt: No Hx Bipolar Disorder: No Hx Schizophrenia: No Other Medical History: NO SUICIDAL,NO HOMICIDAL - Patient Surgical History Past Surgical History: Yes Hx Neurologic Surgery: No Hx Cataract Extraction: No Hx Cardiac Surgery: No Hx Lung Surgery: No Hx Breast Surgery: No Hx Breast Biopsy: No Hx Abdominal Surgery: No Hx Appendectomy: No Hx Cholecystectomy: No Hx Genitourinary Surgery: No Hx Section: No Hx Orthopedic Surgery: Yes ( 05/19) Other Surgical History: LIPOMA BACK OF HEAD Anesthesia Reaction: No - PPD History Previous Implant?: Yes Documented Results: Negative w/proof Implanted On Prior [facility] Admission?: Yes Date: 01/29/16 Results: 0 mm PPD to be Administered?: Yes - Reproductive History Patient : No - Smoking Cessation Smoking history: Current every day smoker Have you smoked in the past 12 months: Yes Aproximately how many cigarettes per day: 8 Cigars Per Day: 0 Hx Chewing Tobacco Use: No Initiated information on smoking cessation: Yes 'Breaking Loose' booklet given: 07/17/17 - Substance & Tx. History Hx Alcohol Use: Yes Hx Substance Use: Yes Substance Use Type: Alcohol, Cocaine Hx Substance Use Treatment: Yes ([facility] IN 05/19) - Substances Abused Cocaine Route: Smoking Frequency: Daily Amount used: 2 GRAM Age of first use: 26 Date of Last Use: 07/16/17 ETOH Route: Oral Frequency: Daily Amount used: 2 PINT VODKA, 2-40 OZ BEER Age of first use: 19 Date of Last Use: 07/16/17 Family Disease History - Family Disease History Family Disease History: Other: Father (etoh) Admission Physical Exam BHS - Vital Signs Vital Signs: Vital Signs - 24 hr 07/17/17 09:25 Temperature 97.1 F L Pulse Rate 81 Respiratory 18 Rate Blood Pressure 166/119 - Physical General Appearance: Yes: Moderate Distress, Tremorous, Irritable, Sweating, Anxious HEENTM: Yes: Normal ENT Inspection, NAV, Pharynx Normal Respiratory: Yes: Lungs Clear, Normal Breath Sounds, No Respiratory Distress Neck: Yes: Within Normal Limits, Supple, Trachea in good position Breast: Yes: Within Normal Limits Cardiology: Yes: Within Normal Limits, Regular Rhythm, Regular Rate, S1, S2 Abdominal: Yes: Normal Bowel Sounds, Non Tender, Flat, Soft, Pulsatile Mass Genitourinary: Yes: Within Normal Limits Back: Yes: Within Normal Limits, Muscle Spasm Musculoskeletal: Yes: Within Normal Limits, full range of Motion, Back pain, Muscle Pain Extremities: Yes: Within Normal Limits, Normal Range of Motion, Tremors Neurological: Yes: 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 II-XII NML intact, Fully Oriented, Alert, Motor Strength 5/5 Integumentary: Yes: Dry Lymphatic: Yes: Within Normal Limits - Diagnostic (1) Alcohol dependence with uncomplicated withdrawal Current Visit: Yes Status: Acute (2) Cocaine dependence, uncomplicated Current Visit: Yes Status: Acute (3) Nicotine dependence Current Visit: Yes Status: Acute Qualifiers: Nicotine product type: cigarettes Substance use status: in withdrawal Qualified Code(s): F17.213 - Nicotine dependence, cigarettes, with withdrawal (4) HTN (hypertension) Current Visit: No Status: Chronic Qualifiers: Hypertension type: essential hypertension Qualified Code(s): I10 - Essential (primary) hypertension (5) Depression Current Visit: Yes Status: Acute (6) Right hand fracture Current Visit: Yes Status: Acute Cleared for Admission [facility] - Detox or Rehab [facility] Level of Care: Medically Managed Detox Regimen/Protocol: Librium [facility] Breath Alcohol Content Breath Alcohol Content: 0 Urine Drug Screen - Results Drug Screen Negative: No Urine Drug Screen Results: KRISTA-Cocaine
[2017-07-17] MEDS ORDERED: MAGNESIUM CITRATE 300 ML BOTTLE PO PRN (10:24)
[2017-07-17] MEDS ORDERED: IBUPROFEN 400 MG TABLET (FP) PO PRN (10:24)
[2017-07-17] MEDS ORDERED: ACETAMINOPHEN 325 MG TABLET (FP) PO PRN (10:24)
[2017-07-17] MEDS ORDERED: hydrOXYzine PAMOATE 50 MG CAPSULE (FP) PO PRN (10:24)
[2017-07-17] MEDS ORDERED: LOPERAMIDE HCL 2 MG CAPSULE PO PRN (10:24)
[2017-07-17] MEDS ORDERED: MAG HYDROX/AL HYDROX/SIMETH 30 ML UNIT-DOSE CUP PO PRN (10:24)
[2017-07-17] MEDS ORDERED: chlordiazePOXIDE HCL 25 MG CAPSULE PO PRN (10:24)
[2017-07-17] MEDS ORDERED: guaiFENesin/D-METHORPHAN HB 10 ML UNIT-DOSE CUPS PO PRN (10:24)
[2017-07-17] MEDS ORDERED: chlordiazePOXIDE HCL 25 MG CAPSULE PO ONE (10:24)
[2017-07-17] MEDS ORDERED: P-EPHED 60MG/TRIPROLIDI 2.5MG TABLET PO PRN (10:24)
[2017-07-17] MEDS ORDERED: MAGNESIUM HYDROX 2400MG/30ML ORAL SUSPENSION 30 ML CUP PO PRN (10:24)
[2017-07-17] MEDS ORDERED: MENTHOL/PHENOL 1 EACH UD MM PRN (10:24)
[2017-07-17] MEDS ORDERED: cloNIDine HCL 0.1 MG TABLET PO ONE (10:28)
[2017-07-17] MEDS: HYDROCHLOROTHIAZIDE 12.5 MG CAPSULE (FP) PO SCH (12:08)
[2017-07-17] MEDS: amLODIPine BESYLATE 5 MG TABLET (FP) PO SCH (12:08)
--- NOTE | 2017-07-17 16:26 | PN ---
B[facility] Progress Note Note: EKG shows sinus bradycardia at 59 bpm, QTc of 421. Normal EKG
[2017-07-17] MEDS: chlordiazePOXIDE HCL 25 MG CAPSULE PO SCH ×2 (17:34→22:11)
[2017-07-17 17:43] LABS: URINE APPEARANCE CLOUDY; URINE BILIRUBIN NEGATIVE (NEGATIVE); URINE BLOOD NEGATIVE (NEGATIVE); URINE COLOR AMBER; URINE GLUCOSE (UA) NEGATIVE (NEGATIVE); URINE KETONE 1+ (NEGATIVE); URINE LEUK ESTERASE NEGATIVE (NEGATIVE); URINE NITRITE NEGATIVE (NEGATIVE)
[2017-07-17 17:45] LABS: URINE PROTEIN 1+ (NEGATIVE)
[2017-07-17 17:50] LABS: EPI CELLS RARE /HPF (FEW); URINE BACTERIA MODERATE /hpf (NONE SEEN); URINE HYALINE CAST 50 /lpf; URINE MUCUS MANY
[2017-07-17] MEDS: THIAMINE HCL 100 MG TABLET (FP) PO SCH (22:11)
--- NOTE | 2017-07-17 23:56 | EKG ---
Test Reason : Blood Pressure : / mmHG Vent. Rate : 059 BPM Atrial Rate : 059 BPM P-R Int : 140 ms QRS Dur : 086 ms QT Int : 426 ms P-R-T Axes : 053 030 034 degrees QTc Int : 421 ms POOR DATA QUALITY, INTERPRETATION MAY BE ADVERSELY AFFECTED SINUS BRADYCARDIA OTHERWISE NORMAL ECG WHEN COMPARED WITH ECG OF 29-NOV-2016 16:44, ST ELEVATION NOW PRESENT IN LATERAL LEADS T WAVE INVERSION NO LONGER EVIDENT IN ANTERIOR LEADS Confirmed by VANI GARDNER MD ([id number]) on 07/17/2017 11:56:25 PM Referred By: Confirmed By:VANI GARDNER MD
[2017-07-18] MEDS: chlordiazePOXIDE HCL 25 MG CAPSULE PO SCH ×4 (06:01→22:11)
--- NOTE | 2017-07-18 10:06 | PN ---
[facility] CIWA - CIWA Score Nausea/Vomitin-No Nausea/No Vomiting Muscle Tremors: 3 Anxiety: 4-Mod. Anxious/Guarded Agitation: 3 Paroxysmal Sweats: 1-Minimal Palms Moist Orientation: 0-Oriented Tacttile Disturbances: 3-Moderate Itch/Numb/Burn Auditory Disturbances: 0-None Visual Disturbances: 0-None Headache: 0-None Present (`) CIWA-Ar Total Score: 14 BHS Progress Note (SOAP) Subjective: ANXIETY,SWEATS,INTERMITTENT SLEEP. Objective: 07/18/17 10:06 Vital Signs Temperature 98.0 F 07/18/17 09:00 Pulse Rate 60 07/18/17 09:00 Respiratory Rate 18 07/18/17 09:00 Blood Pressure 128/79 07/18/17 09:00 O2 Sat by Pulse Oximetry (%) Laboratory Last Values Urine Color Elisa 07/17/17 17:00 Urine Appearance Cloudy 07/17/17 17:00 Urine pH 5.0 (5.0-8.0) 07/17/17 17:00 Ur Specific [place] 1.028 (1.001-1.035) 07/17/17 17:00 Urine Protein 1+ (NEGATIVE) H 07/17/17 17:00 Urine Glucose (UA) Negative (NEGATIVE) 07/17/17 17:00 Urine Ketones 1+ (NEGATIVE) H 07/17/17 17:00 Urine Blood Negative (NEGATIVE) 07/17/17 17:00 Urine Nitrite Negative (NEGATIVE) 07/17/17 17:00 Urine Bilirubin Negative (NEGATIVE) 07/17/17 17:00 Urine Urobilinogen 2.0 mg/dL (0.2-1.0) 07/17/17 17:00 Ur Leukocyte Esterase Negative (NEGATIVE) 07/17/17 17:00 Urine WBC (Auto) 10 /hpf (3-5) 07/17/17 17:00 Urine RBC (Auto) 1 /hpf (0-3) 07/17/17 17:00 Ur Epithelial Cells Rare /HPF (FEW) 07/17/17 17:00 Urine Bacteria Moderate /hpf (NONE SEEN) 07/17/17 17:00 Hyaline Casts 50 /lpf 07/17/17 17:00 Urine Mucus Many 07/17/17 17:00 UA NOTED. Assessment: 07/18/17 10:07 WITHDRAWAL SX Plan: CONTINUE DETOX REPEAT UA; UC TODAY
[2017-07-18] MEDS: PRENATAL VITAMINS W/ FOLIC ACID TABLET (FP) PO SCH (10:19)
[2017-07-18] MEDS: HYDROCHLOROTHIAZIDE 12.5 MG CAPSULE (FP) PO SCH (10:19)
[2017-07-18] MEDS: amLODIPine BESYLATE 5 MG TABLET (FP) PO SCH (10:19)
[2017-07-18 10:26] LABS: HEMOGLOBIN 13.6 GM/dL (11.7-16.9); MCHC 33.2 g/dl (32.0-35.9); MEAN CELL VOLUME 87.2 fl (80-96); MEAN PLT VOLUME 10.4 fl (7.5-11.1); PLATELET COUNT 147 K/MM3 (134-434); RBC 4.71 M/mm3 (4.00-5.60); RDW 13.3 % (11.9-15.9); WHITE BLOOD COUNT 3.9 K/mm3 (4.0-10.0)
[2017-07-18 10:39] LABS: ALBUMIN 3.6 g/dl (3.4-5.0); ANION GAP 9 (8-16); BLOOD UREA NITROGEN 26 mg/dL (7-18); CALCIUM 9.1 mg/dL (8.5-10.1); CHLORIDE 103 mmol/L (98-107); CO2 28 mmol/L (21-32); GLUCOSE,RANDOM 133 mg/dL (74-106); POTASSIUM 4.2 mmol/L (3.5-5.1); SGOT/AST 15 U/L (15-37); SGPT/ALT 29 U/L (12-78); SODIUM 140 mmol/L (136-145); TOT PROT 6.7 g/dl (6.4-8.2)
[2017-07-18 10:42] LABS: ALK PHOS 82 U/L (45-117); CREATININE 1.4 mg/dL (0.7-1.3)
--- NOTE | 2017-07-18 11:38 | CONSULT ---
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 Substance Abuse History: Discussed with patient in this session.Mr Pillai endorses a 30+ year history of alcohol dependence (one pint of vodka daily + 2 X 40 oz of beer a day) and spends 100 dollars every other day on crack.Used cocaine for 20 years. Details in current [facility] report : Smoking history: Current every day smoker. Have you smoked in the past 12 months: Yes. Aproximately how many cigarettes per day: 8. Cigars Per Day: 0. Hx Chewing Tobacco Use: No. Initiated information on smoking cessation: Yes. 'Breaking Loose' booklet given: 07/17/17. - Substance & Tx. History. Hx Alcohol Use: Yes. Hx Substance Use: Yes. Substance Use Type: Alcohol, Cocaine. Hx Substance Use Treatment: Yes ([facility] IN 05/19). - Substances Abused. Cocaine. Route: Smoking. Frequency: Daily. Amount used: 2 GRAM. Age of first use: 26. Date of Last Use: 07/16/17. ETOH. Route: Oral. Frequency: Daily. Amount used: 2 PINT VODKA, 2-40 OZ BEER. Age of first use: 19. Date of Last Use: 07/16/17 Medical History: Hypertension and a history of orthosurgery for fracture of right hand.Noted report of surgical intervention for lipoma of scalp. Psychiatric History: Patient denies. Physical/Sexual Abuse/Trauma History: Patient denies. Additional Comment: Urine Drug Screen Results: KRISTA-Cocaine.Noted. Mental Status Exam - Mental Status Exam Alert and Oriented to: Time, Place, Person Cognitive Function: Good Patient Appearance: Unkempt, Disheveled Mood: Hostile, Withdrawn Affect: Normal Range Patient Behavior: Passive, Cooperative (marginally cooperative) Speech Pattern: Clear Voice Loudness: Normal Thought Process: Goal Oriented Thought Disorder: Not Present Hallucinations: Denies Suicidal Ideation: Denies Homicidal Ideation: Denies Insight/Judgement: Poor Sleep: Poorly, Difficulty falling asleep Appetite: Good Muscle strength/Tone: Normal Gait/Station: Normal Psychiatric Findings - Problem List ([place] 1, 2,3) (1) Alcohol dependence with uncomplicated withdrawal Current Visit: Yes Status: Acute (2) Cocaine dependence, uncomplicated Current Visit: Yes Status: Acute (3) Nicotine dependence Current Visit: Yes Status: Acute Qualifiers: Nicotine product type: cigarettes Substance use status: in withdrawal Qualified Code(s): F17.213 - Nicotine dependence, cigarettes, with withdrawal (4) Insomnia Current Visit: Yes Status: Acute - Initial Treatment Plan Initial Treatment Plan: Psychoeducation.Sleep hygiene.Detoxification in progress.Ambien 10 mg po hs prn.Patient is made aware of risk of parasomnias.Mr Pillai agrees with this careplan.Observation.
[2017-07-18] MEDS ORDERED: PNEUMOC 13-VAL CONJ-DIP CRM/PF 0.5 ML DISP.SYRIN IM ONE (12:00)
[2017-07-18] MEDS ORDERED: FLU VACCINE QUAD 60 MCG/0.5 ML (MDV 17-18) IM ONE (12:00)
[2017-07-18] MEDS: THIAMINE HCL 100 MG TABLET (FP) PO SCH (22:11)
[2017-07-18] MEDS: ZOLPIDEM TARTRATE 10 MG TABLET (PARK CARE ONLY) PO PRN (22:11)
[2017-07-18 23:43] LABS: URINE APPEARANCE CLEAR; URINE BILIRUBIN NEGATIVE (NEGATIVE); URINE BLOOD NEGATIVE (NEGATIVE); URINE COLOR LTYELLOW; URINE GLUCOSE (UA) NEGATIVE (NEGATIVE); URINE KETONE NEGATIVE (NEGATIVE); URINE LEUK ESTERASE NEGATIVE (NEGATIVE); URINE NITRITE NEGATIVE (NEGATIVE); URINE PROTEIN NEGATIVE (NEGATIVE); URINE UROBILINOGEN NEGATIVE mg/dL (0.2-1.0)
[2017-07-19] MEDS: chlordiazePOXIDE HCL 25 MG CAPSULE PO SCH (06:01)
[2017-07-19] MEDS: PRENATAL VITAMINS W/ FOLIC ACID TABLET (FP) PO SCH (10:04)
[2017-07-19] MEDS: amLODIPine BESYLATE 5 MG TABLET (FP) PO SCH (10:04)
[2017-07-19] MEDS: HYDROCHLOROTHIAZIDE 12.5 MG CAPSULE (FP) PO SCH (10:05)
--- NOTE | 2017-07-19 10:35 | PN ---
[facility] CIWA - CIWA Score Nausea/Vomitin-No Nausea/No Vomiting Muscle Tremors: 3 Anxiety: 3 Agitation: 2 Paroxysmal Sweats: 1-Minimal Palms Moist Orientation: 0-Oriented Tacttile Disturbances: 2-Mild Itch/Numbness/Burn Auditory Disturbances: 0-None Visual Disturbances: 0-None Headache: 0-None Present CIWA-Ar Total Score: 11 [facility] Progress Note (SOAP) Subjective: REPORTS DECREASED ANXIETY,SWEATS. NO TREMORS. ALERT O X 3. PT DENIES ACUTE DISTRESS. OOB AMBULATING WITH STEADY GAIT. REQUESTING DISCHARGE TOMORROW. MET WITH COUNSELOR TODAY AND REFERRED TO [facility] FOR FOLLOW UP REHAB AFTERCARE. Objective: 07/19/17 10:33 Vital Signs Temperature 97.1 F L 07/19/17 09:12 Pulse Rate 49 L 07/19/17 09:12 Respiratory Rate 18 07/19/17 09:12 Blood Pressure 143/91 07/19/17 09:12 O2 Sat by Pulse Oximetry (%) Laboratory Last Values WBC 3.9 K/mm3 (4.0-10.0) L 07/18/17 07:00 RBC 4.71 M/mm3 (4.00-5.60) 07/18/17 07:00 Hgb 13.6 GM/dL (11.7-16.9) 07/18/17 07:00 Hct 41.0 % (35.4-49) 07/18/17 07:00 MCV 87.2 fl (80-96) 07/18/17 07:00 MCH 29.0 pg (25.7-33.7) 07/18/17 07:00 MCHC 33.2 g/dl (32.0-35.9) 07/18/17 07:00 RDW 13.3 % (11.9-15.9) 07/18/17 07:00 Plt Count 147 K/MM3 (134-434) 07/18/17 07:00 MPV 10.4 fl (7.5-11.1) 07/18/17 07:00 Sodium 140 mmol/L (136-145) 07/18/17 07:00 Potassium 4.2 mmol/L (3.5-5.1) 07/18/17 07:00 Chloride 103 mmol/L (98-107) 07/18/17 07:00 Carbon Dioxide 28 mmol/L (21-32) 07/18/17 07:00 Anion Gap 9 (8-16) 07/18/17 07:00 BUN 26 mg/dL (7-18) H D 07/18/17 07:00 Creatinine 1.4 mg/dL (0.7-1.3) H 07/18/17 07:00 Creat Clearance w eGFR 53.64 (>60) 07/18/17 07:00 Random Glucose 133 mg/dL (74-106) H D 07/18/17 07:00 Calcium 9.1 mg/dL (8.5-10.1) 07/18/17 07:00 Total Bilirubin 1.0 mg/dL (0.2-1.0) D 07/18/17 07:00 AST 15 U/L (15-37) D 07/18/17 07:00 ALT 29 U/L (12-78) D 07/18/17 07:00 Alkaline Phosphatase 82 U/L (45-117) 07/18/17 07:00 Total Protein 6.7 g/dl (6.4-8.2) 07/18/17 07:00 Albumin 3.6 g/dl (3.4-5.0) 07/18/17 07:00 Urine Color Ltyellow 07/18/17 14:43 Urine Appearance Clear 07/18/17 14:43 Urine pH 5.0 (5.0-8.0) 07/18/17 14:43 Ur Specific [place] 1.015 (1.001-1.035) 07/18/17 14:43 Urine Protein Negative (NEGATIVE) 07/18/17 14:43 Urine Glucose (UA) Negative (NEGATIVE) 07/18/17 14:43 Urine Ketones Negative (NEGATIVE) 07/18/17 14:43 Urine Blood Negative (NEGATIVE) 07/18/17 14:43 Urine Nitrite Negative (NEGATIVE) 07/18/17 14:43 Urine Bilirubin Negative (NEGATIVE) 07/18/17 14:43 Urine Urobilinogen Negative mg/dL (0.2-1.0) 07/18/17 14:43 Ur Leukocyte Esterase Negative (NEGATIVE) 07/18/17 14:43 Urine WBC (Auto) 10 /hpf (3-5) 07/17/17 17:00 Urine RBC (Auto) 1 /hpf (0-3) 07/17/17 17:00 Ur Epithelial Cells Rare /HPF (FEW) 07/17/17 17:00 Urine Bacteria Moderate /hpf (NONE SEEN) 07/17/17 17:00 Hyaline Casts 50 /lpf 07/17/17 17:00 Urine Mucus Many 07/17/17 17:00 RPR Titer Nonreactive (NONREACTIVE) 07/18/17 07:00 Hep C Ab Diagnostic 0.1 s/co ratio (0.0-0.9) 07/18/17 07:00 HIV 1&2 Antibody Screen Negative 07/18/17 07:00 HIV P24 Antigen Negative 07/18/17 07:00 BMP REPEATED THIS MORNING BGM FASTING IN AM R/O HYPERGLYCEMIA REPEAT UA IMPROVED AND WNL Assessment: 07/19/17 10:35 DECREASED WITHDRAWAL SX Plan: CONTINUE DETOX. LIBRIUM TAPER ADJUSTED. PT INSTRUCTED TO FOLLOW UP WITH MEDICAL PROVIDER FOR MEDICAL MANAGEMENT OF COMORBID CONDITIONS AFTER DISCHARGE FROM DETOX.
[2017-07-19] MEDS: chlordiazePOXIDE 5 MG CAPSULE PO SCH ×2 (11:39→17:13)
[2017-07-19 16:03] LABS: CHLORIDE 103 mmol/L (98-107); POTASSIUM 4.4 mmol/L (3.5-5.1); SODIUM 141 mmol/L (136-145)
[2017-07-19 16:12] LABS: ANION GAP 9 (8-16); BLOOD UREA NITROGEN 20 mg/dL (7-18); CALCIUM 9.2 mg/dL (8.5-10.1); CO2 29 mmol/L (21-32); CREATININE 1.2 mg/dL (0.7-1.3); GLUCOSE,RANDOM 83 mg/dL (74-106)
[2017-07-19] MEDS ORDERED: chlordiazePOXIDE 5 MG CAPSULE PO SCH (17:00)
[2017-07-19] MEDS: chlordiazePOXIDE HCL 10 MG CAPSULE PO SCH (22:32)
[2017-07-19] MEDS: THIAMINE HCL 100 MG TABLET (FP) PO SCH (22:32)
[2017-07-19] MEDS: ZOLPIDEM TARTRATE 10 MG TABLET (PARK CARE ONLY) PO PRN (22:32)
[2017-07-20 05:22] VITALS: BP 149/90; PULSE 51; TEMP 98.6
[2017-07-20] MEDS: chlordiazePOXIDE HCL 10 MG CAPSULE PO SCH (06:48)
--- NOTE | 2017-07-20 09:19 | PN ---
[facility] Progress Note (SOAP) Subjective: DETOX COMPLETED. ALERT O X 3. Objective: 07/20/17 09:17 Vital Signs Temperature 98.6 F 07/20/17 05:21 Pulse Rate 51 L 07/20/17 05:21 Respiratory Rate 18 07/20/17 05:21 Blood Pressure 149/90 07/20/17 05:21 O2 Sat by Pulse Oximetry (%) Laboratory Last Values WBC 3.9 K/mm3 (4.0-10.0) L 07/18/17 07:00 RBC 4.71 M/mm3 (4.00-5.60) 07/18/17 07:00 Hgb 13.6 GM/dL (11.7-16.9) 07/18/17 07:00 Hct 41.0 % (35.4-49) 07/18/17 07:00 MCV 87.2 fl (80-96) 07/18/17 07:00 MCH 29.0 pg (25.7-33.7) 07/18/17 07:00 MCHC 33.2 g/dl (32.0-35.9) 07/18/17 07:00 RDW 13.3 % (11.9-15.9) 07/18/17 07:00 Plt Count 147 K/MM3 (134-434) 07/18/17 07:00 MPV 10.4 fl (7.5-11.1) 07/18/17 07:00 Sodium 141 mmol/L (136-145) 07/19/17 10:00 Potassium 4.4 mmol/L (3.5-5.1) 07/19/17 10:00 Chloride 103 mmol/L (98-107) 07/19/17 10:00 Carbon Dioxide 29 mmol/L (21-32) 07/19/17 10:00 Anion Gap 9 (8-16) 07/19/17 10:00 BUN 20 mg/dL (7-18) H D 07/19/17 10:00 Creatinine 1.2 mg/dL (0.7-1.3) 07/19/17 10:00 Creat Clearance w eGFR 53.64 (>60) 07/18/17 07:00 POC Glucometer 104 UNITS (80-120) 07/20/17 06:14 Random Glucose 83 mg/dL (74-106) D 07/19/17 10:00 Calcium 9.2 mg/dL (8.5-10.1) 07/19/17 10:00 Total Bilirubin 1.0 mg/dL (0.2-1.0) D 07/18/17 07:00 AST 15 U/L (15-37) D 07/18/17 07:00 ALT 29 U/L (12-78) D 07/18/17 07:00 Alkaline Phosphatase 82 U/L (45-117) 07/18/17 07:00 Total Protein 6.7 g/dl (6.4-8.2) 07/18/17 07:00 Albumin 3.6 g/dl (3.4-5.0) 07/18/17 07:00 Urine Color Ltyellow 07/18/17 14:43 Urine Appearance Clear 07/18/17 14:43 Urine pH 5.0 (5.0-8.0) 07/18/17 14:43 Ur Specific [place] 1.015 (1.001-1.035) 07/18/17 14:43 Urine Protein Negative (NEGATIVE) 07/18/17 14:43 Urine Glucose (UA) Negative (NEGATIVE) 07/18/17 14:43 Urine Ketones Negative (NEGATIVE) 07/18/17 14:43 Urine Blood Negative (NEGATIVE) 07/18/17 14:43 Urine Nitrite Negative (NEGATIVE) 07/18/17 14:43 Urine Bilirubin Negative (NEGATIVE) 07/18/17 14:43 Urine Urobilinogen Negative mg/dL (0.2-1.0) 07/18/17 14:43 Ur Leukocyte Esterase Negative (NEGATIVE) 07/18/17 14:43 Urine WBC (Auto) 10 /hpf (3-5) 07/17/17 17:00 Urine RBC (Auto) 1 /hpf (0-3) 07/17/17 17:00 Ur Epithelial Cells Rare /HPF (FEW) 07/17/17 17:00 Urine Bacteria Moderate /hpf (NONE SEEN) 07/17/17 17:00 Hyaline Casts 50 /lpf 07/17/17 17:00 Urine Mucus Many 07/17/17 17:00 RPR Titer Nonreactive (NONREACTIVE) 07/18/17 07:00 Hep C Ab Diagnostic 0.1 s/co ratio (0.0-0.9) 07/18/17 07:00 HIV 1&2 Antibody Screen Negative 07/18/17 07:00 HIV P24 Antigen Negative 07/18/17 07:00 FBS IMPROVED 104 MG/DL Assessment: 07/20/17 09:18 NAD Plan: CONTINUE DETOX
[2017-07-20] MEDS ORDERED: chlordiazePOXIDE HCL 10 MG CAPSULE PO SCH (17:00)
== END 2017-07-20 08:59 | disposition home or self-care (01) | DRG 774 ==
LOC: YASAS 08:51 → Y3N 10:54
PROVIDERS: ADMIT Internal Medicine; ATTEND Internal Medicine
PROC: HZ2ZZZZ Detoxification Services for Substance Abuse Treatment (ICD-10-PCS; principal; 2017-07-17)
DX: F10.230 Alcohol dependence with withdrawal, uncomplicated (principal); F14.20 Cocaine dependence, uncomplicated; F17.213 Nicotine dependence, cigarettes, with withdrawal; F32.9 Major depressive disorder, single episode, unspecified; I10 Essential (primary) hypertension; G47.00 Insomnia, unspecified; Z87.81 Personal history of (healed) traumatic fracture; Z86.018 Personal history of other benign neoplasm
CPT/HCPCS: 36415; 80048; 80053; 81003; 81015; 82962; 85027; 86593; 87086; 87389; 93005; 93010; J0735

== ENCOUNTER 2018-07-03 09:35 | Inpatient (IN) | payer OTHER ==
[2018-07-03 11:03] VITALS: BMI 29.5
--- NOTE | 2018-07-03 12:17 | HP ---
CIWA Score Nausea/Vomitin Muscle Tremors: 2 Anxiety: 2 Agitation: 2 Paroxysmal Sweats: 1-Minimal Palms Moist Orientation: 0-Oriented Tacttile Disturbances: 1-Very Mild Itch/Numbness Auditory Disturbances: 1-Very Mild Visual Disturbances: 0-None Headache: 2-Mild CIWA-Ar Total Score: 13 - Admission Criteria OASAS Guidelines: Admission for Medically Managed Detox: Requires at least one of the followin. CIWA greater than 12 2. Seizures within the past 24 hours 3. Delirium tremens within the past 24 hours 4. Hallucinations within the past 24 hours 5. Acute intervention needed for co occurring medical disorder 6. Acute intervention needed for co occurring psychiatric disorder 7. Severe withdrawal that cannot be handled at a lower level of care (continued vomiting, continued diarrhea, abnormal vital signs) requiring intravenous medication and/or fluids 8. Patient presents the following: CIWA greater than 12 Admission Criteria Met: Admission criteria met Admission ROS [facility] - HPI Chief Complaint: i need help to stop drinking alcohol and cocaine Allergies/Adverse Reactions: Allergies Allergy/AdvReac Type Severity Reaction Status Date / Time No Known Allergies Allergy Verified 07/03/18 11:38 History of Present Illness: this 52 years old male with alcohol and cocaine dependence,seeking detox, withdrawal symptom multiple admissions in detox,but keep relapsing last detox 07/17/17 to 07/20/17 weight loss nicotine dependence longest sobriety 3 years may go to rehab after detox hypertension non compliance Exam Limitations: No Limitations - Ebola screening Have you traveled outside of the country in the last 21 days: No Have you had contact with anyone from an Ebola affected area: No Have you been sick,other than usual withdrawal symptoms: No Do you have a fever: No - Review of Systems Constitutional: Loss of Appetite, Malaise, Night Sweats, Changes in sleep, Weakness, Unintentional Wgt. Loss EENT: reports: Tearing, Nose Congestion Respiratory: reports: No Symptoms reported Cardiac: reports: No Symptoms Reported GI: reports: Nausea, Poor Appetite, Vomiting, Abdominal cramping : reports: No Symptoms Reported Musculoskeletal: reports: Back Pain, Muscle Pain Integumentary: reports: Dryness Neuro: reports: Headache, Tremors Endocrine: reports: No Symptoms Reported Hematology: reports: No Symptoms Reported Psychiatric: reports: No Sypmtoms Reported, Judgement Intact, Mood/Affect Appropiate, Orientated x3 Other Systems: Reviewed and Negative Patient History - Patient Medical History Hx Anemia: No Hx Asthma: No Hx Chronic Obstructive Pulmonary Disease (COPD): No Hx Cancer: No Hx Cardiac Disorders: No Hx Congestive Heart Failure: No Hx Hypertension: No Hx Hypercholesterolemia: No Hx Pacemaker: No HX Cerebrovascular Accident: No Hx Seizures: No Hx Dementia: No Hx Diabetes: No Hx Gastrointestinal Disorders: No Hx Liver Disease: No Hx Genitourinary Disorders: No Hx Sexually Transmitted Disorders: No Hx Renal Disease (ESRD): No Hx Thyroid Disease: No Hx Human Immunodeficiency Virus (HIV): No (NEGATIVE HX LAST 2012) Hx Hepatitis C: No Hx Depression: Yes (NO MED) Hx Suicide Attempt: No Hx Bipolar Disorder: No Hx Schizophrenia: No Other Medical History: no suicidal,no homicidal - Patient Surgical History Past Surgical History: Yes Hx Neurologic Surgery: No Hx Cataract Extraction: No Hx Cardiac Surgery: No Hx Lung Surgery: No Hx Breast Surgery: No Hx Breast Biopsy: No Hx Abdominal Surgery: No Hx Appendectomy: No Hx Cholecystectomy: No Hx Genitourinary Surgery: No Hx Section: No Hx Orthopedic Surgery: Yes (05/19 right hand surgery - pins inserted) Other Surgical History: LIPOMA BACK OF HEAD Anesthesia Reaction: No - PPD History Previous Implant?: Yes Documented Results: Negative w/proof Implanted On Prior [facility] Admission?: Yes Date: 07/19/17 Results: 0 mm PPD to be Administered?: No - Reproductive History Patient : No - Smoking Cessation Smoking history: Current every day smoker Have you smoked in the past 12 months: Yes Aproximately how many cigarettes per day: 8 Cigars Per Day: 0 Hx Chewing Tobacco Use: No Initiated information on smoking cessation: Yes 'Breaking Loose' booklet given: 07/03/18 - Substance & Tx. History Hx Alcohol Use: Yes Hx Substance Use: Yes Substance Use Type: Alcohol, Cocaine Hx Substance Use Treatment: Yes ([facility] 07/17/17 to 07/20/17) - Substances Abused Alcohol Route: Oral Frequency: Daily Amount used: 1 pint vodka & two 40 ounces beer. Age of first use: 19 Date of Last Use: 07/02/18 Cocaine Route: Smoking Frequency: Daily Amount used: 2 grams Age of first use: 22 Date of Last Use: 07/02/18 Family Disease History - Family Disease History Family Disease History: Other: Father (etoh) Admission Physical Exam [facility] - Vital Signs Vital Signs: Vital Signs - 24 hr 07/03/18 11:01 Temperature 98.1 F Pulse Rate 63 Respiratory 20 Rate Blood Pressure 159/80 - Physical General Appearance: Yes: Moderate Distress, Tremorous, Irritable, Sweating, Anxious HEENTM: Yes: Normal ENT Inspection, Normocephalic, NAV, Pharynx Normal Respiratory: Yes: Lungs Clear, Normal Breath Sounds, No Respiratory Distress Neck: Yes: Within Normal Limits, Supple, Trachea in good position Breast: Yes: Within Normal Limits Cardiology: Yes: Within Normal Limits, Regular Rhythm, Regular Rate, S1, S2 Abdominal: Yes: Within Normal Limits, Normal Bowel Sounds, Non Tender, Flat, Soft Genitourinary: Yes: Within Normal Limits Back: Yes: Within Normal Limits, Normal Inspection, Muscle Spasm Musculoskeletal: Yes: full range of Motion, Back pain, Muscle Pain Extremities: Yes: Normal Range of Motion, Tremors Neurological: Yes: bread dumper II-XII NML intact, Fully Oriented, Alert, Motor Strength 5/5 Integumentary: Yes: Dry Lymphatic: Yes: Within Normal Limits - Diagnostic (1) Alcohol dependence with uncomplicated withdrawal Current Visit: No Status: Acute (2) Cocaine dependence, uncomplicated Current Visit: No Status: Acute (3) Nicotine dependence Current Visit: No Status: Acute Qualifiers: Nicotine product type: cigarettes Substance use status: in withdrawal Qualified Code(s): F17.213 - Nicotine dependence, cigarettes, with withdrawal (4) Right hand fracture Current Visit: No Status: Acute (5) HTN (hypertension) Current Visit: No Status: Chronic Qualifiers: Hypertension type: essential hypertension Qualified Code(s): I10 - Essential (primary) hypertension Cleared for Admission [facility] - Detox or Rehab [facility] Level of Care: Medically Managed Detox Regimen/Protocol: Librium [facility] Breath Alcohol Content Breath Alcohol Content: 0 Urine Drug Screen - Results Drug Screen Negative: No Urine Drug Screen Results: KRISTA-Cocaine Inpatient Rehab Admission - Rehab Decision to Admit Inpatient rehab admission?: No
[2018-07-03] MEDS ORDERED: MAG HYDROX/AL HYDROX/SIMETH 30 ML UNIT-DOSE CUP PO PRN (12:26)
[2018-07-03] MEDS ORDERED: chlordiazePOXIDE HCL 25 MG CAPSULE PO PRN (12:26)
[2018-07-03] MEDS ORDERED: P-EPHED 60MG/TRIPROLIDI 2.5MG TABLET PO PRN (12:26)
[2018-07-03] MEDS ORDERED: LOPERAMIDE HCL 2 MG CAPSULE PO PRN (12:26)
[2018-07-03] MEDS ORDERED: hydrOXYzine PAMOATE 50 MG CAPSULE (FP) PO PRN (12:26)
[2018-07-03] MEDS ORDERED: MAGNESIUM CITRATE 300 ML BOTTLE PO PRN (12:26)
[2018-07-03] MEDS ORDERED: MAGNESIUM HYDROX 2400MG/30ML ORAL SUSPENSION 30 ML CUP PO PRN (12:26)
[2018-07-03] MEDS ORDERED: guaiFENesin/D-METHORPHAN HB 10 ML UNIT-DOSE CUPS PO PRN (12:26)
[2018-07-03] MEDS ORDERED: ACETAMINOPHEN 325 MG TABLET (FP) PO PRN (12:26)
[2018-07-03] MEDS ORDERED: IBUPROFEN 400 MG TABLET (FP) PO PRN (12:26)
[2018-07-03] MEDS ORDERED: MENTHOL/PHENOL 1 EACH UD MM PRN (12:26)
[2018-07-03] MEDS ORDERED: amLODIPine BESYLATE 5 MG TABLET (FP) PO ONE (12:30)
[2018-07-03] MEDS ORDERED: HYDROCHLOROTHIAZIDE 12.5 MG CAPSULE (FP) PO ONE (13:30)
[2018-07-03] MEDS: chlordiazePOXIDE HCL 25 MG CAPSULE PO SCH ×2 (16:57→22:36)
[2018-07-03] MEDS ORDERED: cloNIDine HCL 0.1 MG TABLET PO ONE (18:01)
--- NOTE | 2018-07-03 18:04 | PN ---
S Progress Note Note: Vital Signs Temperature 97.4 F L 07/03/18 17:19 Pulse Rate 72 07/03/18 17:20 Respiratory Rate 18 07/03/18 17:20 Blood Pressure 166/94 07/03/18 17:20 O2 Sat by Pulse Oximetry (%) asymptomatic elevated BP d/t withdrawal sx c one time dose clonidine 0.1 mg increase PO fluids continue to monitor
[2018-07-03 20:32] LABS: URINE APPEARANCE TURBID; URINE BILIRUBIN NEGATIVE (<2.0 mg/dL); URINE COLOR YELLOW; URINE GLUCOSE (UA) NEGATIVE (NEGATIVE); URINE KETONE NEGATIVE (NEGATIVE); URINE LEUK ESTERASE NEGATIVE (NEGATIVE); URINE NITRITE NEGATIVE (NEGATIVE); URINE PROTEIN 1+ (NEGATIVE)
[2018-07-03 20:57] LABS: EPI CELLS RARE /HPF (FEW); URINE BACTERIA RARE /hpf (NONE SEEN); URINE MUCUS FEW; YEAST FEW
[2018-07-03] MEDS ORDERED: MELATONIN 5 MG TABLETS PO PRN (22:00)
[2018-07-03] MEDS ORDERED: THIAMINE HCL 100 MG TABLET (FP) PO SCH (22:00)
[2018-07-04] MEDS: chlordiazePOXIDE HCL 25 MG CAPSULE PO SCH ×2 (05:43→10:34)
[2018-07-04] MEDS ORDERED: HYDROCHLOROTHIAZIDE 12.5 MG CAPSULE (FP) PO SCH (10:00)
[2018-07-04] MEDS ORDERED: PNEUMOC 13-VAL CONJ-DIP CRM/PF 0.5 ML DISP.SYRIN IM ONE (10:00)
[2018-07-04] MEDS ORDERED: PRENATAL VITAMINS W/ FOLIC ACID TABLET (FP) PO SCH (10:00)
[2018-07-04] MEDS ORDERED: amLODIPine BESYLATE 5 MG TABLET (FP) PO SCH (10:00)
[2018-07-04] MEDS ORDERED: CYCLOBENZAPRINE HCL 5 MG TABLET PO ONE (10:41)
[2018-07-04 11:00] LABS: ALBUMIN 3.4 g/dl (3.4-5.0); ALK PHOS 68 U/L (45-117); ANION GAP 8 MMOL/L (8-16); BILIRUBIN,TOTAL 1.2 mg/dL (0.2-1); BLOOD UREA NITROGEN 20 mg/dL (7-18); CALCIUM 8.5 mg/dL (8.5-10.1); CHLORIDE 106 mmol/L (98-107); CO2 25 mmol/L (21-32); CREATININE 1.3 mg/dL (0.55-1.3); GLUCOSE,RANDOM 103 mg/dL (74-106); POTASSIUM 4.3 mmol/L (3.5-5.1); SGOT/AST 19 U/L (15-37); SGPT/ALT 35 U/L (13-61); SODIUM 139 mmol/L (136-145); TOT PROT 6.3 g/dl (6.4-8.2)
[2018-07-04 11:05] LABS: HEMATOCRIT 38.2 % (35.4-49); MCH 30.4 pg (25.7-33.7); MEAN CELL VOLUME 89.4 fl (80-96); MEAN PLT VOLUME 10.8 fl (7.5-11.1); PLATELET COUNT 139 K/MM3 (134-434); RBC 4.28 M/mm3 (4.00-5.60); RDW 13.1 % (11.9-15.9)
[2018-07-04] MEDS ORDERED: PNEUMOCOCCAL 23 VACCINE 0.5 ML VIAL IM ONE (12:00)
[2018-07-04] MEDS ORDERED: FLU VACCINE QUAD 60 MCG/0.5 ML (MDV 18-19) IM ONE (12:00)
[2018-07-04] MEDS ORDERED: cloNIDine HCL 0.1 MG TABLET PO PRN (13:02)
--- NOTE | 2018-07-04 13:07 | PN ---
S CIWA - CIWA Score Nausea/Vomitin-No Nausea/No Vomiting Muscle Tremors: 3 Anxiety: 1-Mildly Anxious Agitation: 2 Paroxysmal Sweats: 1-Minimal Palms Moist Orientation: 1-Uncertain about Date Tacttile Disturbances: 0-None Auditory Disturbances: 0-None Visual Disturbances: 0-None Headache: 1-Very Mild CIWA-Ar Total Score: 9 [facility] Progress Note (SOAP) Subjective: tremor sweating anxiety muscle tightness Objective: 07/04/18 13:06 Vital Signs Temperature 97.0 F L 07/04/18 09:23 Pulse Rate 64 07/04/18 09:23 Respiratory Rate 18 07/04/18 09:23 Blood Pressure 147/83 07/04/18 09:23 O2 Sat by Pulse Oximetry (%) Laboratory Last Values WBC 4.0 K/mm3 (4.0-10.0) 07/04/18 07:00 RBC 4.28 M/mm3 (4.00-5.60) 07/04/18 07:00 Hgb 13.0 GM/dL (11.7-16.9) 07/04/18 07:00 Hct 38.2 % (35.4-49) 07/04/18 07:00 MCV 89.4 fl (80-96) 07/04/18 07:00 MCH 30.4 pg (25.7-33.7) 07/04/18 07:00 MCHC 34.0 g/dl (32.0-35.9) 07/04/18 07:00 RDW 13.1 % (11.9-15.9) 07/04/18 07:00 Plt Count 139 K/MM3 (134-434) 07/04/18 07:00 MPV 10.8 fl (7.5-11.1) 07/04/18 07:00 Sodium 139 mmol/L (136-145) 07/04/18 07:00 Potassium 4.3 mmol/L (3.5-5.1) 07/04/18 07:00 Chloride 106 mmol/L (98-107) 07/04/18 07:00 Carbon Dioxide 25 mmol/L (21-32) 07/04/18 07:00 Anion Gap 8 MMOL/L (8-16) 07/04/18 07:00 BUN 20 mg/dL (7-18) H 07/04/18 07:00 Creatinine 1.3 mg/dL (0.55-1.3) 07/04/18 07:00 Creat Clearance w eGFR 58.20 (>60) 07/04/18 07:00 Random Glucose 103 mg/dL (74-106) 07/04/18 07:00 Calcium 8.5 mg/dL (8.5-10.1) 07/04/18 07:00 Total Bilirubin 1.2 mg/dL (0.2-1) H 07/04/18 07:00 AST 19 U/L (15-37) 07/04/18 07:00 ALT 35 U/L (13-61) 07/04/18 07:00 Alkaline Phosphatase 68 U/L (45-117) 07/04/18 07:00 Total Protein 6.3 g/dl (6.4-8.2) L 07/04/18 07:00 Albumin 3.4 g/dl (3.4-5.0) 07/04/18 07:00 Urine Color Yellow 07/03/18 15:51 Urine Appearance Turbid 07/03/18 15:51 Urine pH 5.0 (5.0-8.0) 07/03/18 15:51 Ur Specific [place] 1.029 (1.010-1.035) 07/03/18 15:51 Urine Protein 1+ (NEGATIVE) H 07/03/18 15:51 Urine Glucose (UA) Negative (NEGATIVE) 07/03/18 15:51 Urine Ketones Negative (NEGATIVE) 07/03/18 15:51 Urine Blood Negative (NEGATIVE) 07/03/18 15:51 Urine Nitrite Negative (NEGATIVE) 07/03/18 15:51 Urine Bilirubin Negative (<2.0 mg/dL) 07/03/18 15:51 Urine Urobilinogen 2.0 mg/dL (0.2-1.0) 07/03/18 15:51 Ur Leukocyte Esterase Negative (NEGATIVE) 07/03/18 15:51 Urine WBC (Auto) 15 /hpf (3-5) 07/03/18 15:51 Urine RBC (Auto) 1 /hpf (0-3) 07/03/18 15:51 Ur Epithelial Cells Rare /HPF (FEW) 07/03/18 15:51 Urine Bacteria Rare /hpf (NONE SEEN) 07/03/18 15:51 Urine Mucus Few 07/03/18 15:51 Urine Yeast Few 07/03/18 15:51 HIV 1&2 Antibody Screen Negative 07/03/18 13:00 HIV P24 Antigen Negative 07/03/18 13:00 lab noted Assessment: 07/04/18 13:07 alcohol withdrawal sx Plan: continue detox
[2018-07-04 13:59] VITALS: BP 135/80; PULSE 51; TEMP 96.3
--- NOTE | 2018-07-04 14:14 | DS ---
[facility] Detox Discharge Summary Admission Date: 07/03/18 Discharge Date: 07/04/18 - History Present History: Alcohol Dependence Additional Comments: 52 years old male admitted on 07/03/18 for alcohol withdrawal stabilization insists to leave the detox unit due to certification was requested by the counselor for insurance application patient was angry about certification that "Deanne never ask for certification for insurance" patient stated that he was there twice for hypertension and no one ask about certification patient is alert no acute distress denies suicidal ideation patient may need insurance application assistance such as social service department Pertinent Past History: keep medication list in wallet bring in medication list and bottles of medication to aftercare appointment - Physical Exam Results Vital Signs: Vital Signs Temperature 96.3 F L 07/04/18 13:59 Pulse Rate 51 L 07/04/18 13:59 Respiratory Rate 18 07/04/18 13:59 Blood Pressure 135/80 07/04/18 13:59 O2 Sat by Pulse Oximetry (%) Pertinent Admission Physical Exam Findings: alcohol withdrawal sx Laboratory Last Values WBC 4.0 K/mm3 (4.0-10.0) 07/04/18 07:00 RBC 4.28 M/mm3 (4.00-5.60) 07/04/18 07:00 Hgb 13.0 GM/dL (11.7-16.9) 07/04/18 07:00 Hct 38.2 % (35.4-49) 07/04/18 07:00 MCV 89.4 fl (80-96) 07/04/18 07:00 MCH 30.4 pg (25.7-33.7) 07/04/18 07:00 MCHC 34.0 g/dl (32.0-35.9) 07/04/18 07:00 RDW 13.1 % (11.9-15.9) 07/04/18 07:00 Plt Count 139 K/MM3 (134-434) 07/04/18 07:00 MPV 10.8 fl (7.5-11.1) 07/04/18 07:00 Sodium 139 mmol/L (136-145) 07/04/18 07:00 Potassium 4.3 mmol/L (3.5-5.1) 07/04/18 07:00 Chloride 106 mmol/L (98-107) 07/04/18 07:00 Carbon Dioxide 25 mmol/L (21-32) 07/04/18 07:00 Anion Gap 8 MMOL/L (8-16) 07/04/18 07:00 BUN 20 mg/dL (7-18) H 07/04/18 07:00 Creatinine 1.3 mg/dL (0.55-1.3) 07/04/18 07:00 Creat Clearance w eGFR 58.20 (>60) 07/04/18 07:00 Random Glucose 103 mg/dL (74-106) 07/04/18 07:00 Calcium 8.5 mg/dL (8.5-10.1) 07/04/18 07:00 Total Bilirubin 1.2 mg/dL (0.2-1) H 07/04/18 07:00 AST 19 U/L (15-37) 07/04/18 07:00 ALT 35 U/L (13-61) 07/04/18 07:00 Alkaline Phosphatase 68 U/L (45-117) 07/04/18 07:00 Total Protein 6.3 g/dl (6.4-8.2) L 07/04/18 07:00 Albumin 3.4 g/dl (3.4-5.0) 07/04/18 07:00 Urine Color Yellow 07/03/18 15:51 Urine Appearance Turbid 07/03/18 15:51 Urine pH 5.0 (5.0-8.0) 07/03/18 15:51 Ur Specific [place] 1.029 (1.010-1.035) 07/03/18 15:51 Urine Protein 1+ (NEGATIVE) H 07/03/18 15:51 Urine Glucose (UA) Negative (NEGATIVE) 07/03/18 15:51 Urine Ketones Negative (NEGATIVE) 07/03/18 15:51 Urine Blood Negative (NEGATIVE) 07/03/18 15:51 Urine Nitrite Negative (NEGATIVE) 07/03/18 15:51 Urine Bilirubin Negative (<2.0 mg/dL) 07/03/18 15:51 Urine Urobilinogen 2.0 mg/dL (0.2-1.0) 07/03/18 15:51 Ur Leukocyte Esterase Negative (NEGATIVE) 07/03/18 15:51 Urine WBC (Auto) 15 /hpf (3-5) 07/03/18 15:51 Urine RBC (Auto) 1 /hpf (0-3) 07/03/18 15:51 Ur Epithelial Cells Rare /HPF (FEW) 07/03/18 15:51 Urine Bacteria Rare /hpf (NONE SEEN) 07/03/18 15:51 Urine Mucus Few 07/03/18 15:51 Urine Yeast Few 07/03/18 15:51 RPR Titer Nonreactive (NONREACTIVE) 07/04/18 07:00 HIV 1&2 Antibody Screen Negative 07/03/18 13:00 HIV P24 Antigen Negative 07/03/18 13:00 lab noted - Treatment Hospital Course: Detox Protocol Followed, Detoxed Safely, Responded well, Discharged Condition Good, Rehab Referral Accepted Patient has Accepted a Rehab Referral to: self help support group - Medication Discharge Medications: Ambulatory Orders Amlodipine Besylate [Norvasc -] 5 mg PO DAILY #30 tablet 07/19/17 Hydrochlorothiazide [Hctz -] 12.5 mg PO DAILY #30 cap 07/19/17 - Diagnosis (1) Alcohol dependence with uncomplicated withdrawal Current Visit: Yes Status: Acute (2) Nicotine dependence Current Visit: Yes Status: Acute Qualifiers: Nicotine product type: cigarettes Substance use status: in withdrawal Qualified Code(s): F17.213 - Nicotine dependence, cigarettes, with withdrawal (3) HTN (hypertension) Current Visit: Yes Status: Chronic Qualifiers: Hypertension type: essential hypertension Qualified Code(s): I10 - Essential (primary) hypertension - AMA Did Patient Leave Against Medical Advice: Yes
[2018-07-04] MEDS ORDERED: chlordiazePOXIDE HCL 25 MG CAPSULE PO SCH (17:00)
[2018-07-05] MEDS ORDERED: chlordiazePOXIDE 5 MG CAPSULE PO SCH (17:00)
[2018-07-06] MEDS ORDERED: chlordiazePOXIDE HCL 10 MG CAPSULE PO SCH (17:00)
== END 2018-07-04 13:47 | disposition left against medical advice (07) | DRG 770 ==
LOC: YASAS 09:35 → Y3N 13:11
PROVIDERS: ADMIT Surgery; ATTEND Surgery
PROC: HZ2ZZZZ Detoxification Services for Substance Abuse Treatment (ICD-10-PCS; principal; 2018-07-03)
DX: F10.230 Alcohol dependence with withdrawal, uncomplicated (principal); F14.20 Cocaine dependence, uncomplicated; F17.210 Nicotine dependence, cigarettes, uncomplicated; I10 Essential (primary) hypertension; R63.4 Abnormal weight loss; Z68.29 Body mass index [BMI] 29.0-29.9, adult; Z87.81 Personal history of (healed) traumatic fracture
CPT/HCPCS: 36415; 80053; 81003; 81015; 85027; 86593; 87389; 90688; 90732; G0008; G0009; J0735

== ENCOUNTER 2018-09-02 15:51 | Inpatient (IN) | payer OTHER ==
[2018-09-02 17:22] VITALS: BMI 30.8
--- NOTE | 2018-09-02 20:00 | HP ---
CIWA Score Nausea/Vomitin-Mild Nausea/No Vomiting Muscle Tremors: 3 Anxiety: 3 Agitation: 2 Paroxysmal Sweats: 3 Orientation: 0-Oriented Tacttile Disturbances: 0-None Auditory Disturbances: 0-None Visual Disturbances: 0-None Headache: 1-Very Mild CIWA-Ar Total Score: 13 - Admission Criteria OASAS Guidelines: Admission for Medically Managed Detox: Requires at least one of the followin. CIWA greater than 12 2. Seizures within the past 24 hours 3. Delirium tremens within the past 24 hours 4. Hallucinations within the past 24 hours 5. Acute intervention needed for co occurring medical disorder 6. Acute intervention needed for co occurring psychiatric disorder 7. Severe withdrawal that cannot be handled at a lower level of care (continued vomiting, continued diarrhea, abnormal vital signs) requiring intravenous medication and/or fluids 8. Admission ROS [facility] Chief Complaint: "I want to detox" Allergies/Adverse Reactions: Allergies Allergy/AdvReac Type Severity Reaction Status Date / Time No Known Allergies Allergy Verified 09/02/18 17:15 History of Present Illness: 52 y/o male requesting detox. Patient is known to this facility and was last here in June. Denies alcohol induced seizures but endorses blackout with the last one last april. Denies previous nor current SI/HI. Hx - HTN. Confidential Drug Utilization Report Search Terms: yoshi mathias, 1965 Search Date: 09/02/2018 07:58:56 PM The Drug Utilization Report below displays all of the controlled substance prescriptions, if any, that your patient has filled in the last twelve months. The information displayed on this report is compiled from pharmacy submissions to the Department, and accurately reflects the information as submitted by the pharmacies. This report was requested by: Paula Benedict | Reference #: [id number] There are no results for the search terms that you entered. Utox positive for benzos but pt denies use. Exam Limitations: No Limitations - Ebola screening Have you traveled outside of the country in the last 21 days: No (N) Have you had contact with anyone from an Ebola affected area: No Do you have a fever: No - Review of Systems Constitutional: Changes in sleep EENT: reports: No Symptoms Reported Respiratory: reports: No Symptoms reported Cardiac: reports: No Symptoms Reported GI: reports: Poor Fluid Intake : reports: No Symptoms Reported Musculoskeletal: reports: Back Pain (low back pain) Integumentary: reports: No Symptoms Reported Neuro: reports: No Symptoms reported Endocrine: reports: No Symptoms Reported Hematology: reports: No Symptoms Reported Psychiatric: reports: Judgement Intact, Mood/Affect Appropiate, Orientated x3 Other Systems: Reviewed and Negative Patient History - Patient Medical History Hx Anemia: No Hx Asthma: No Hx Chronic Obstructive Pulmonary Disease (COPD): No Hx Cancer: No Hx Cardiac Disorders: No Hx Congestive Heart Failure: No Hx Hypertension: Yes (On norvasc, hctz) Hx Hypercholesterolemia: No Hx Pacemaker: No HX Cerebrovascular Accident: No Hx Seizures: No Hx Dementia: No Hx Diabetes: No Hx Gastrointestinal Disorders: No Hx Liver Disease: No Hx Genitourinary Disorders: No Hx Sexually Transmitted Disorders: No Hx Renal Disease (ESRD): No Hx Thyroid Disease: No Hx Human Immunodeficiency Virus (HIV): No (NEGATIVE HX LAST 2012) Hx Hepatitis C: No Hx Depression: Yes (NO MED) Hx Suicide Attempt: No Hx Bipolar Disorder: No Hx Schizophrenia: No - Patient Surgical History Past Surgical History: Yes Hx Neurologic Surgery: No Hx Cataract Extraction: No Hx Cardiac Surgery: No Hx Lung Surgery: No Hx Breast Surgery: No Hx Breast Biopsy: No Hx Abdominal Surgery: No Hx Appendectomy: No Hx Cholecystectomy: No Hx Genitourinary Surgery: No Hx Section: No Hx Orthopedic Surgery: Yes (05/19 right hand surgery - pins inserted) Other Surgical History: LIPOMA BACK OF HEAD Anesthesia Reaction: No - PPD History Previous Implant?: Yes Documented Results: Negative w/proof Implanted On Prior [facility] Admission?: Yes Date: 07/19/17 Results: 0 mm PPD to be Administered?: Yes - Reproductive History Patient is a Female of Child Bearing Age (11 -55 yrs old): No - Smoking Cessation Smoking history: Current every day smoker Have you smoked in the past 12 months: Yes Aproximately how many cigarettes per day: 10 Cigars Per Day: 0 Hx Chewing Tobacco Use: No Initiated information on smoking cessation: Yes 'Breaking Loose' booklet given: 09/02/18 - Substances abused Alcohol Substance route: Oral Frequency: Daily Amount used: 2 40OZ BEER, 1/2 vodka Age of first use: 19 Date of last use: 09/02/18 Cocaine Substance route: Smoking Frequency: Daily Amount used: 1GRAM Age of first use: 22 Date of last use: 09/02/18 Family Disease History - Family Disease History Family Disease History: Other: Father (etoh) Admission Physical Exam [facility] - Vital Signs Vital Signs: Vital Signs - 24 hr 09/02/18 09/02/18 17:15 17:49 Temperature 98.2 F 98.2 F Pulse Rate 70 70 Respiratory 18 18 Rate Blood Pressure 163/98 163/98 - Physical General Appearance: Yes: Mild Distress HEENTM: Yes: Within Normal Limits Respiratory: Yes: Lungs Clear, Normal Breath Sounds, No Respiratory Distress Neck: Yes: No masses,lesions,Nodules, Trachea in good position Breast: Yes: Breast Exam Deferred Cardiology: Yes: Regular Rhythm, Regular Rate, S1, S2 Abdominal: Yes: Normal Bowel Sounds, Non Tender, Soft Genitourinary: Yes: Within Normal Limits Back: Yes: Normal Inspection Musculoskeletal: Yes: full range of Motion, Gait Steady Extremities: Yes: Normal Capillary Refill, Normal Inspection Neurological: Yes: Within Normal Limits, Fully Oriented, Alert Integumentary: Yes: Within Normal Limits, Normal Color Lymphatic: Yes: Within Normal Limits - Diagnostic (1) HTN (hypertension) Current Visit: No Status: Chronic Qualifiers: Hypertension type: essential hypertension Qualified Code(s): I10 - Essential (primary) hypertension (2) Alcohol dependence with uncomplicated withdrawal Current Visit: Yes Status: Acute (3) Alcohol-induced sleep disorder Current Visit: Yes Status: Acute (4) Cocaine dependence, uncomplicated Current Visit: Yes Status: Acute (5) Nicotine dependence Current Visit: Yes Status: Acute Qualifiers: Nicotine product type: cigarettes Substance use status: in withdrawal Qualified Code(s): F17.213 - Nicotine dependence, cigarettes, with withdrawal Cleared for Admission [facility] - Detox or Rehab [facility] Level of Care: Medically Managed Detox Regimen/Protocol: Librium Breathalyzer - Breathalyzer Breathalyzer: 0 Urine Drug Screen - Test Device Lot number: [id number] Expiration date: 03/31/20 - Control Is test valid?: Yes - Results Drug screen NEGATIVE: No Urine drug screen results: THC-Marijuana, KRISTA-Cocaine, BZO-Benzodiazepines Inpatient Rehab Admission - Rehab Decision to Admit Inpatient rehab admission?: No
[2018-09-02] MEDS ORDERED: chlordiazePOXIDE HCL 10 MG CAPSULE PO PRN (20:14)
[2018-09-02] MEDS ORDERED: ONDANSETRON *ODT* 4 MG TABLET SL PRN (20:14)
[2018-09-02] MEDS ORDERED: MENTHOL/PHENOL 1 EACH UD MM PRN (20:14)
[2018-09-02] MEDS ORDERED: MAGNESIUM HYDROX 2400MG/30ML ORAL SUSPENSION 30 ML CUP PO PRN (20:14)
[2018-09-02] MEDS ORDERED: MAGNESIUM CITRATE 300 ML BOTTLE PO PRN (20:14)
[2018-09-02] MEDS ORDERED: BISMUTH SUBSALICYLATE 524 MG/30 ML UD PO PRN (20:14)
[2018-09-02] MEDS ORDERED: MAG HYDROX/AL HYDROX/SIMETH 30 ML UNIT-DOSE CUP PO PRN (20:14)
[2018-09-02] MEDS ORDERED: ACETAMINOPHEN 325 MG TABLET (FP) PO PRN ×2 (20:14)
[2018-09-02] MEDS ORDERED: hydrOXYzine PAMOATE 25 MG CAPSULE (FP) PO PRN (20:14)
[2018-09-02] MEDS ORDERED: MELATONIN 5 MG TABLETS PO PRN (20:14)
[2018-09-02] MEDS: THIAMINE HCL 100 MG TABLET (FP) PO SCH (20:39)
[2018-09-02] MEDS: chlordiazePOXIDE HCL 25 MG CAPSULE PO SCH (20:48)
[2018-09-02] MEDS: NICOTINE 14 MG/24 HOURS TOPICAL PATCH TD SCH (21:01)
[2018-09-03] MEDS: chlordiazePOXIDE HCL 25 MG CAPSULE PO SCH ×2 (06:38→13:13)
[2018-09-03] MEDS: IBUPROFEN 400 MG TABLET (FP) PO PRN ×2 (06:40→19:37)
[2018-09-03] MEDS: METHOCARBAMOL 500 MG TABLET PO PRN ×2 (06:41→19:37)
[2018-09-03] MEDS: PRENATAL VITAMINS W/ FOLIC ACID TABLET (FP) PO SCH (10:36)
[2018-09-03] MEDS: NICOTINE 14 MG/24 HOURS TOPICAL PATCH TD SCH (10:37)
[2018-09-03 11:02] LABS: HEMATOCRIT 40.3 % (35.4-49); HEMOGLOBIN 13.4 GM/dL (11.7-16.9); MCH 29.3 pg (25.7-33.7); MCHC 33.2 g/dl (32.0-35.9); MEAN CELL VOLUME 88.1 fl (80-96); MEAN PLT VOLUME 10.3 fl (7.5-11.1); PLATELET COUNT 188 K/MM3 (134-434); RBC 4.58 M/mm3 (4.00-5.60); RDW 13.6 % (11.9-15.9); WHITE BLOOD COUNT 4.7 K/mm3 (4.0-10.0)
--- NOTE | 2018-09-03 11:22 | PN ---
[facility] CIWA - CIWA Score Nausea/Vomitin-Mild Nausea/No Vomiting Muscle Tremors: 3 Anxiety: 1-Mildly Anxious Agitation: 2 Paroxysmal Sweats: 1-Minimal Palms Moist Orientation: 2-Disoriented Date<2 days Tacttile Disturbances: 0-None Auditory Disturbances: 0-None Visual Disturbances: 0-None Headache: 1-Very Mild CIWA-Ar Total Score: 11 S Progress Note (SOAP) Subjective: feeling ok today doing well with librium detox regimen social with peers in day room Objective: 09/03/18 11:23 Vital Signs Temperature 97.7 F 09/03/18 09:19 Pulse Rate 57 L 09/03/18 09:19 Respiratory Rate 18 09/03/18 09:19 Blood Pressure 150/87 09/03/18 09:19 O2 Sat by Pulse Oximetry (%) Laboratory Last Values WBC 4.7 K/mm3 (4.0-10.0) 09/03/18 07:50 RBC 4.58 M/mm3 (4.00-5.60) 09/03/18 07:50 Hgb 13.4 GM/dL (11.7-16.9) 09/03/18 07:50 Hct 40.3 % (35.4-49) 09/03/18 07:50 MCV 88.1 fl (80-96) 09/03/18 07:50 MCH 29.3 pg (25.7-33.7) 09/03/18 07:50 MCHC 33.2 g/dl (32.0-35.9) 09/03/18 07:50 RDW 13.6 % (11.9-15.9) 09/03/18 07:50 Plt Count 188 K/MM3 (134-434) D 09/03/18 07:50 MPV 10.3 fl (7.5-11.1) 09/03/18 07:50 lab noted 09/03/18 11:24 begin antihypertensant Assessment: 09/03/18 11:26 alcohol withdrawal sx Plan: continue detox
[2018-09-03 11:40] LABS: ALBUMIN 3.5 g/dl (3.4-5.0); ALK PHOS 73 U/L (45-117); ANION GAP 6 MMOL/L (8-16); BILIRUBIN,TOTAL 0.6 mg/dL (0.2-1); BLOOD UREA NITROGEN 22 mg/dL (7-18); CALCIUM 9.2 mg/dL (8.5-10.1); CHLORIDE 106 mmol/L (98-107); CO2 28 mmol/L (21-32); CREATININE 1.2 mg/dL (0.55-1.3); GLUCOSE,RANDOM 102 mg/dL (74-106); POTASSIUM 4.2 mmol/L (3.5-5.1); SGOT/AST 24 U/L (15-37); SGPT/ALT 38 U/L (13-61); SODIUM 139 mmol/L (136-145); TOT PROT 6.6 g/dl (6.4-8.2)
[2018-09-03] MEDS: amLODIPine BESYLATE 5 MG TABLET (FP) PO SCH (13:13)
[2018-09-03] MEDS: HYDROCHLOROTHIAZIDE 12.5 MG CAPSULE (FP) PO SCH (13:13)
[2018-09-03] MEDS: THIAMINE HCL 100 MG TABLET (FP) PO SCH (22:32)
[2018-09-03] MEDS: chlordiazePOXIDE 5 MG CAPSULE PO SCH (22:32)
[2018-09-04] MEDS: chlordiazePOXIDE 5 MG CAPSULE PO SCH ×2 (07:39→13:34)
[2018-09-04] MEDS: IBUPROFEN 400 MG TABLET (FP) PO PRN ×2 (08:11→19:17)
[2018-09-04] MEDS: METHOCARBAMOL 500 MG TABLET PO PRN (08:11)
[2018-09-04] MEDS: amLODIPine BESYLATE 5 MG TABLET (FP) PO SCH (09:47)
[2018-09-04] MEDS: HYDROCHLOROTHIAZIDE 12.5 MG CAPSULE (FP) PO SCH (09:47)
[2018-09-04] MEDS: PRENATAL VITAMINS W/ FOLIC ACID TABLET (FP) PO SCH (09:47)
[2018-09-04] MEDS: NICOTINE 14 MG/24 HOURS TOPICAL PATCH TD SCH (09:48)
--- NOTE | 2018-09-04 11:22 | PN ---
S CIWA - CIWA Score Nausea/Vomitin-Mild Nausea/No Vomiting Muscle Tremors: 2 Anxiety: 2 Agitation: 1-Slight > Activity Paroxysmal Sweats: No Perspiration Orientation: 0-Oriented Tacttile Disturbances: 0-None Auditory Disturbances: 0-None Visual Disturbances: 0-None Headache: 1-Very Mild CIWA-Ar Total Score: 7 [facility] Progress Note (SOAP) Subjective: report 10-15 + years olf hypertension multiple er and hospitalization due to bp elevation begin amlodipin 10 mg po daily strong recommend bp monitoring and medication adjustment utilizing [facility] Objective: 09/04/18 11:21 Laboratory Last Values WBC 4.7 K/mm3 (4.0-10.0) 09/03/18 07:50 RBC 4.58 M/mm3 (4.00-5.60) 09/03/18 07:50 Hgb 13.4 GM/dL (11.7-16.9) 09/03/18 07:50 Hct 40.3 % (35.4-49) 09/03/18 07:50 MCV 88.1 fl (80-96) 09/03/18 07:50 MCH 29.3 pg (25.7-33.7) 09/03/18 07:50 MCHC 33.2 g/dl (32.0-35.9) 09/03/18 07:50 RDW 13.6 % (11.9-15.9) 09/03/18 07:50 Plt Count 188 K/MM3 (134-434) D 09/03/18 07:50 MPV 10.3 fl (7.5-11.1) 09/03/18 07:50 Sodium 139 mmol/L (136-145) 09/03/18 07:50 Potassium 4.2 mmol/L (3.5-5.1) 09/03/18 07:50 Chloride 106 mmol/L (98-107) 09/03/18 07:50 Carbon Dioxide 28 mmol/L (21-32) 09/03/18 07:50 Anion Gap 6 MMOL/L (8-16) L 09/03/18 07:50 BUN 22 mg/dL (7-18) H 09/03/18 07:50 Creatinine 1.2 mg/dL (0.55-1.3) 09/03/18 07:50 Creat Clearance w eGFR 63.83 (>60) 09/03/18 07:50 Random Glucose 102 mg/dL (74-106) 09/03/18 07:50 Calcium 9.2 mg/dL (8.5-10.1) 09/03/18 07:50 Total Bilirubin 0.6 mg/dL (0.2-1) 09/03/18 07:50 AST 24 U/L (15-37) 09/03/18 07:50 ALT 38 U/L (13-61) 09/03/18 07:50 Alkaline Phosphatase 73 U/L (45-117) 09/03/18 07:50 Total Protein 6.6 g/dl (6.4-8.2) 09/03/18 07:50 Albumin 3.5 g/dl (3.4-5.0) 09/03/18 07:50 RPR Titer Nonreactive (NONREACTIVE) 09/03/18 07:50 lab noted Assessment: 09/04/18 11:21 alcohol withdrawal sx Plan: continue detox
[2018-09-04] MEDS ORDERED: amLODIPine BESYLATE 5 MG TABLET (FP) PO ONE (11:40)
[2018-09-04] MEDS ORDERED: chlordiazePOXIDE HCL 10 MG CAPSULE PO PRN (21:00)
[2018-09-04] MEDS: THIAMINE HCL 100 MG TABLET (FP) PO SCH (22:09)
[2018-09-04] MEDS: chlordiazePOXIDE HCL 10 MG CAPSULE PO SCH (22:09)
[2018-09-05] MEDS: chlordiazePOXIDE HCL 10 MG CAPSULE PO SCH ×3 (06:08→22:00)
[2018-09-05] MEDS ORDERED: amLODIPine BESYLATE 10 MG TABLET (FP) PO SCH (10:00)
[2018-09-05] MEDS: HYDROCHLOROTHIAZIDE 12.5 MG CAPSULE (FP) PO SCH (10:11)
[2018-09-05] MEDS: NICOTINE 14 MG/24 HOURS TOPICAL PATCH TD SCH (10:11)
[2018-09-05] MEDS: PRENATAL VITAMINS W/ FOLIC ACID TABLET (FP) PO SCH (10:11)
[2018-09-05] MEDS: IBUPROFEN 400 MG TABLET (FP) PO PRN (14:27)
--- NOTE | 2018-09-05 15:09 | PN ---
S CIWA - CIWA Score Nausea/Vomitin-Mild Nausea/No Vomiting Muscle Tremors: 1-None Visible, but [place] Anxiety: 1-Mildly Anxious Agitation: 1-Slight > Activity Paroxysmal Sweats: No Perspiration Orientation: 0-Oriented Tacttile Disturbances: 0-None Auditory Disturbances: 0-None Visual Disturbances: 0-None Headache: 0-None Present CIWA-Ar Total Score: 4 BHS Progress Note (SOAP) Subjective: feeling better today discuss aftercare with staff in day room Objective: 09/05/18 15:06 Vital Signs Temperature 97.9 F 09/05/18 13:36 Pulse Rate 59 L 09/05/18 13:36 Respiratory Rate 20 09/05/18 13:36 Blood Pressure 157/90 09/05/18 13:36 O2 Sat by Pulse Oximetry (%) Laboratory Last Values WBC 4.7 K/mm3 (4.0-10.0) 09/03/18 07:50 RBC 4.58 M/mm3 (4.00-5.60) 09/03/18 07:50 Hgb 13.4 GM/dL (11.7-16.9) 09/03/18 07:50 Hct 40.3 % (35.4-49) 09/03/18 07:50 MCV 88.1 fl (80-96) 09/03/18 07:50 MCH 29.3 pg (25.7-33.7) 09/03/18 07:50 MCHC 33.2 g/dl (32.0-35.9) 09/03/18 07:50 RDW 13.6 % (11.9-15.9) 09/03/18 07:50 Plt Count 188 K/MM3 (134-434) D 09/03/18 07:50 MPV 10.3 fl (7.5-11.1) 09/03/18 07:50 Sodium 139 mmol/L (136-145) 09/03/18 07:50 Potassium 4.2 mmol/L (3.5-5.1) 09/03/18 07:50 Chloride 106 mmol/L (98-107) 09/03/18 07:50 Carbon Dioxide 28 mmol/L (21-32) 09/03/18 07:50 Anion Gap 6 MMOL/L (8-16) L 09/03/18 07:50 BUN 22 mg/dL (7-18) H 09/03/18 07:50 Creatinine 1.2 mg/dL (0.55-1.3) 09/03/18 07:50 Creat Clearance w eGFR 63.83 (>60) 09/03/18 07:50 Random Glucose 102 mg/dL (74-106) 09/03/18 07:50 Calcium 9.2 mg/dL (8.5-10.1) 09/03/18 07:50 Total Bilirubin 0.6 mg/dL (0.2-1) 09/03/18 07:50 AST 24 U/L (15-37) 09/03/18 07:50 ALT 38 U/L (13-61) 09/03/18 07:50 Alkaline Phosphatase 73 U/L (45-117) 09/03/18 07:50 Total Protein 6.6 g/dl (6.4-8.2) 09/03/18 07:50 Albumin 3.5 g/dl (3.4-5.0) 09/03/18 07:50 RPR Titer Nonreactive (NONREACTIVE) 09/03/18 07:50 lab noted add lisinopril 10 mg po bid 09/05/18 15:08 Assessment: 09/05/18 15:08 alcohol withdrawal sx Plan: continue detox
[2018-09-05] MEDS ORDERED: LISINOPRIL 10 MG TABLET (FP) PO SCH (22:00)
[2018-09-05] MEDS: THIAMINE HCL 100 MG TABLET (FP) PO SCH (22:00)
[2018-09-06 06:17] VITALS: BP 123/74; PULSE 48; TEMP 97.3
[2018-09-06] MEDS: IBUPROFEN 400 MG TABLET (FP) PO PRN (06:46)
[2018-09-06] MEDS: METHOCARBAMOL 500 MG TABLET PO PRN (06:51)
--- NOTE | 2018-09-06 15:43 | DS ---
[facility] Detox Discharge Summary Admission Date: 09/02/18 Discharge Date: 09/06/18 - History Present History: Alcohol Dependence Additional Comments: 52 years old male admitted on 09/02/18 for alcohol withdrawal stabilization completed detox regimen aftercare [facility] Pertinent Past History: bring in medication list and lab report to aftercare appointment - Physical Exam Results Vital Signs: Vital Signs Temperature 97.3 F L 09/06/18 06:16 Pulse Rate 48 L 09/06/18 06:16 Respiratory Rate 18 09/06/18 06:16 Blood Pressure 123/74 09/06/18 06:16 O2 Sat by Pulse Oximetry (%) Pertinent Admission Physical Exam Findings: alcohol withdrawal sx Laboratory Last Values WBC 4.7 K/mm3 (4.0-10.0) 09/03/18 07:50 RBC 4.58 M/mm3 (4.00-5.60) 09/03/18 07:50 Hgb 13.4 GM/dL (11.7-16.9) 09/03/18 07:50 Hct 40.3 % (35.4-49) 09/03/18 07:50 MCV 88.1 fl (80-96) 09/03/18 07:50 MCH 29.3 pg (25.7-33.7) 09/03/18 07:50 MCHC 33.2 g/dl (32.0-35.9) 09/03/18 07:50 RDW 13.6 % (11.9-15.9) 09/03/18 07:50 Plt Count 188 K/MM3 (134-434) D 09/03/18 07:50 MPV 10.3 fl (7.5-11.1) 09/03/18 07:50 Sodium 139 mmol/L (136-145) 09/03/18 07:50 Potassium 4.2 mmol/L (3.5-5.1) 09/03/18 07:50 Chloride 106 mmol/L (98-107) 09/03/18 07:50 Carbon Dioxide 28 mmol/L (21-32) 09/03/18 07:50 Anion Gap 6 MMOL/L (8-16) L 09/03/18 07:50 BUN 22 mg/dL (7-18) H 09/03/18 07:50 Creatinine 1.2 mg/dL (0.55-1.3) 09/03/18 07:50 Creat Clearance w eGFR 63.83 (>60) 09/03/18 07:50 Random Glucose 102 mg/dL (74-106) 09/03/18 07:50 Calcium 9.2 mg/dL (8.5-10.1) 09/03/18 07:50 Total Bilirubin 0.6 mg/dL (0.2-1) 09/03/18 07:50 AST 24 U/L (15-37) 09/03/18 07:50 ALT 38 U/L (13-61) 09/03/18 07:50 Alkaline Phosphatase 73 U/L (45-117) 09/03/18 07:50 Total Protein 6.6 g/dl (6.4-8.2) 09/03/18 07:50 Albumin 3.5 g/dl (3.4-5.0) 09/03/18 07:50 RPR Titer Nonreactive (NONREACTIVE) 09/03/18 07:50 lab noted - Treatment Hospital Course: Detox Protocol Followed, Detoxed Safely, Responded well, Discharged Condition Good, Rehab Referral Accepted Patient has Accepted a Rehab Referral to: [facility] - Medication Discharge Medications: Ambulatory Orders Amlodipine Besylate [Norvasc -] 5 mg PO DAILY #30 tablet 07/19/17 Amlodipine Besylate [Norvasc -] 10 mg PO DAILY #14 tablet 09/04/18 Hydrochlorothiazide [Hctz -] 12.5 mg PO DAILY #30 cap 09/04/18 Lisinopril 10 mg PO BID 09/05/18 - Diagnosis (1) Alcohol dependence with uncomplicated withdrawal Status: Acute (2) Nicotine dependence Status: Acute Qualifiers: Nicotine product type: cigarettes Substance use status: in withdrawal Qualified Code(s): F17.213 - Nicotine dependence, cigarettes, with withdrawal (3) HTN (hypertension) Status: Chronic Qualifiers: Hypertension type: essential hypertension Qualified Code(s): I10 - Essential (primary) hypertension - AMA Did Patient Leave Against Medical Advice: No
== END 2018-09-06 06:56 | disposition home or self-care (01) | DRG 774 ==
LOC: YASAS 15:51 → Y3N 20:19
PROVIDERS: ADMIT Surgery; ATTEND Surgery
PROC: HZ2ZZZZ Detoxification Services for Substance Abuse Treatment (ICD-10-PCS; principal; 2018-09-02)
DX: F10.230 Alcohol dependence with withdrawal, uncomplicated (principal); F10.282 Alcohol dependence with alcohol-induced sleep disorder; F14.20 Cocaine dependence, uncomplicated; F17.213 Nicotine dependence, cigarettes, with withdrawal; I10 Essential (primary) hypertension
CPT/HCPCS: 36415; 80053; 85027; 86593

== ENCOUNTER 2018-11-02 10:29 | Inpatient (IN) | payer OTHER ==
[2018-11-02 11:39] VITALS: BMI 30.2
--- NOTE | 2018-11-02 13:29 | HP ---
CIWA Score Nausea/Vomitin-No Nausea/No Vomiting Muscle Tremors: None Anxiety: 0-No Anxiety, at Ease Agitation: 2 Paroxysmal Sweats: 2 Orientation: 0-Oriented Tacttile Disturbances: 0-None Auditory Disturbances: 0-None Visual Disturbances: 0-None Headache: 0-None Present CIWA-Ar Total Score: 4 - Admission Criteria OASAS Guidelines: Admission for Medically Managed Detox: Requires at least one of the followin. CIWA greater than 12 2. Seizures within the past 24 hours 3. Delirium tremens within the past 24 hours 4. Hallucinations within the past 24 hours 5. Acute intervention needed for co occurring medical disorder 6. Acute intervention needed for co occurring psychiatric disorder 7. Severe withdrawal that cannot be handled at a lower level of care (continued vomiting, continued diarrhea, abnormal vital signs) requiring intravenous medication and/or fluids 8. Admission ROS [facility] Allergies/Adverse Reactions: Allergies Allergy/AdvReac Type Severity Reaction Status Date / Time No Known Allergies Allergy Verified 11/02/18 11:31 History of Present Illness: pt here requesting detox from etoh use , claims 1 pint vodka and 2 x 40 oz bottles of beer daily , latest use this morning, current symptoms as above , reports irritability if not drinking , denies blackouts or seizures , starts drinking in the mornings , reports occasional tremors . Prior detox at this facility August 2018 . cocaine - 1 gr every pther day denies ivdu denies other illicits tobacco : 8 cigs/day pmhx : htn not on meds , does not see PCP pshx : r hand , cervical lipoma psych : depression , denies SI / HI Exam Limitations: No Limitations - Ebola screening Have you traveled outside of the country in the last 21 days: No (N) Have you had contact with anyone from an Ebola affected area: No Do you have a fever: No - Review of Systems Constitutional: No Symptoms Reported EENT: reports: No Symptoms Reported Respiratory: reports: No Symptoms reported Cardiac: reports: No Symptoms Reported GI: reports: No Symptoms Reported : reports: No Symptoms Reported Musculoskeletal: reports: No Symptoms Reported Integumentary: reports: No Symptoms Reported Endocrine: reports: No Symptoms Reported Psychiatric: reports: Orientated x3, Agitated Patient History - Patient Medical History Hx Anemia: No Hx Asthma: No Hx Chronic Obstructive Pulmonary Disease (COPD): No Hx Cancer: No Hx Cardiac Disorders: No Hx Congestive Heart Failure: No Hx Hypertension: Yes (On norvasc, hctz) Hx Hypercholesterolemia: No Hx Pacemaker: No HX Cerebrovascular Accident: No Hx Seizures: No Hx Dementia: No Hx Diabetes: No Hx Gastrointestinal Disorders: No Hx Liver Disease: No Hx Genitourinary Disorders: No Hx Sexually Transmitted Disorders: No Hx Renal Disease (ESRD): No Hx Thyroid Disease: No Hx Human Immunodeficiency Virus (HIV): No (NEGATIVE HX LAST 2012) Hx Hepatitis C: No Hx Depression: Yes (NO MED) Hx Suicide Attempt: No Hx Bipolar Disorder: No Hx Schizophrenia: No - Patient Surgical History Past Surgical History: Yes Hx Neurologic Surgery: No Hx Cataract Extraction: No Hx Cardiac Surgery: No Hx Lung Surgery: No Hx Breast Surgery: No Hx Breast Biopsy: No Hx Abdominal Surgery: No Hx Appendectomy: No Hx Cholecystectomy: No Hx Genitourinary Surgery: No Hx Section: No Hx Orthopedic Surgery: Yes (05/19 right hand surgery - pins inserted) Other Surgical History: LIPOMA BACK OF HEAD Anesthesia Reaction: No - PPD History Date: 09/04/18 Results: 0 mm - Smoking Cessation Smoking history: Current every day smoker Have you smoked in the past 12 months: Yes Aproximately how many cigarettes per day: 10 Cigars Per Day: 0 Hx Chewing Tobacco Use: No Initiated information on smoking cessation: No - Substances abused Alcohol Substance route: Oral Frequency: Daily Amount used: 2 40OZ BEER, 1/2 pint of vodka Age of first use: 19 Date of last use: 11/02/18 Cocaine Substance route: Smoking Frequency: 3-6 times per week Amount used: 1GRAM Age of first use: 22 Date of last use: 11/01/18 Family Disease History - Family Disease History Family Disease History: Other: Father (etoh) Admission Physical Exam [facility] - Vital Signs Vital Signs: Vital Signs - 24 hr 11/02/18 11:31 Temperature 98.4 F Pulse Rate 91 H Respiratory 18 Rate Blood Pressure 144/91 - Physical General Appearance: Yes: Irritable HEENTM: Yes: EOMI, Normocephalic, Normal Voice Respiratory: Yes: No Respiratory Distress, No Accessory Muscle Use Neck: Yes: No masses,lesions,Nodules, Trachea in good position Cardiology: Yes: Regular Rhythm, Regular Rate, S1, S2 Abdominal: Yes: Non Tender, Soft Musculoskeletal: Yes: Gait Steady Extremities: Yes: Normal Range of Motion, Non-Tender Neurological: Yes: Fully Oriented, Alert, Motor Strength 5/5 Integumentary: Yes: Warm - Addiitonal Findings: d/w pt as currently w/ ciwa score =4 , no additional symptoms noted or reported, not meeting criteria for inpt detox , pt angry with feature writer, verbally abusive when advised he is not currently meeting criteria for this level of care, rehab recommended , eventually pt agreeable to start rehab at this facility . Advised pt to report to nursing any additional symptoms , if withdrawal worsens at any point may be transferred to detox . - Diagnostic (1) Cocaine dependence, uncomplicated Current Visit: Yes Status: Acute (2) Nicotine dependence Current Visit: Yes Status: Acute Qualifiers: Nicotine product type: cigarettes Substance use status: in withdrawal Qualified Code(s): F17.213 - Nicotine dependence, cigarettes, with withdrawal (3) Alcohol dependence Current Visit: Yes Status: Acute Qualifiers: Substance use status: uncomplicated Qualified Code(s): F10.20 - Alcohol dependence, uncomplicated Breathalyzer - Breathalyzer Breathalyzer: 0 Urine Drug Screen - Test Device Lot number: [id number] Expiration date: 03/31/20 - Control Is test valid?: Yes - Results Drug screen NEGATIVE: No Urine drug screen results: THC-Marijuana, KRISTA-Cocaine, BZO-Benzodiazepines Inpatient Rehab Admission - Rehab Decision to Admit Inpatient rehab admission?: Yes - Initial Determination Are CD services needed?: Yes Free of communicable disease: Yes Not in need of hospitalization: Yes - Rehab Admission Criteria Previous failed treatment: Yes Poor recovery environment: Yes Comorbidities: No Lacks judgement: Yes Patient is meeting Inpatient Rehab admission criteria:: Yes
[2018-11-02] MEDS ORDERED: MAGNESIUM CITRATE 300 ML BOTTLE PO PRN (14:28)
[2018-11-02] MEDS ORDERED: MENTHOL/PHENOL 1 EACH UD MM PRN (14:28)
[2018-11-02] MEDS ORDERED: NICOTINE POLACRILEX 2 MG GUM BUC PRN (14:28)
[2018-11-02] MEDS ORDERED: ACETAMINOPHEN 325 MG TABLET (FP) PO PRN (14:28)
[2018-11-02] MEDS ORDERED: P-EPHED 60MG/TRIPROLIDI 2.5MG TABLET PO PRN (14:28)
[2018-11-02] MEDS ORDERED: MAG HYDROX/AL HYDROX/SIMETH 30 ML UNIT-DOSE CUP PO PRN (14:28)
[2018-11-02] MEDS ORDERED: MAGNESIUM HYDROX 2400MG/30ML ORAL SUSPENSION 30 ML CUP PO PRN (14:28)
[2018-11-02] MEDS ORDERED: guaiFENesin 200 MG/10 ML 10 ML UNIT-DOSE CUPS PO PRN (14:28)
[2018-11-02] MEDS ORDERED: cloNIDine HCL 0.1 MG TABLET PO PRN (14:29)
[2018-11-02 20:44] LABS: URINE APPEARANCE TURBID; URINE BILIRUBIN 1+ (NEGATIVE); URINE COLOR DK YELLOW; URINE GLUCOSE (UA) NEGATIVE (NEGATIVE); URINE KETONE TRACE (NEGATIVE); URINE LEUK ESTERASE NEGATIVE (NEGATIVE); URINE NITRITE NEGATIVE (NEGATIVE); URINE PROTEIN TRACE (NEGATIVE)
[2018-11-02] MEDS: THIAMINE HCL 100 MG TABLET (FP) PO SCH (21:54)
[2018-11-02] MEDS ORDERED: MELATONIN 5 MG TABLETS PO PRN (22:00)
[2018-11-03] MEDS: IBUPROFEN 400 MG TABLET (FP) PO PRN ×2 (06:37→21:11)
[2018-11-03] MEDS: PRENATAL VITAMINS W/ FOLIC ACID TABLET (FP) PO SCH (09:57)
[2018-11-03 10:25] LABS: HEMATOCRIT 39.8 % (35.4-49); HEMOGLOBIN 13.3 GM/dL (11.7-16.9); MCH 29.3 pg (25.7-33.7); MCHC 33.5 g/dl (32.0-35.9); MEAN CELL VOLUME 87.4 fl (80-96); MEAN PLT VOLUME 10.4 fl (7.5-11.1); PLATELET COUNT 178 K/MM3 (134-434); RBC 4.55 M/mm3 (4.00-5.60); RDW 13.5 % (11.9-15.9); WHITE BLOOD COUNT 3.9 K/mm3 (4.0-10.0)
[2018-11-03 10:47] LABS: ALBUMIN 3.4 g/dl (3.4-5.0); BILIRUBIN,TOTAL 0.7 mg/dL (0.2-1); CALCIUM 8.7 mg/dL (8.5-10.1); CREATININE 1.3 mg/dL (0.55-1.3); POTASSIUM 4.4 mmol/L (3.5-5.1); TOT PROT 6.4 g/dl (6.4-8.2)
--- NOTE | 2018-11-03 14:00 | PN ---
[facility] Progress Note Note: Vital Signs Temperature 99.3 F 11/03/18 06:53 Pulse Rate 55 L 11/03/18 06:53 Respiratory Rate 18 11/03/18 06:53 Blood Pressure 154/91 11/03/18 06:53 O2 Sat by Pulse Oximetry (%) Laboratory Tests 11/02/18 11/02/18 11/02/18 08:15 08:15 08:15 WBC 3.9 L RBC 4.55 Hgb 13.3 Hct 39.8 MCV 87.4 MCH 29.3 MCHC 33.5 RDW 13.5 Plt Count 178 MPV 10.4 Sodium 142 Potassium 4.4 Chloride 110 H Carbon Dioxide 28 Anion Gap 4 L BUN 15.0 Creatinine 1.3 Est GFR (CKD-EPI)AfAm 73.22 Est GFR (CKD-EPI)NonAf 63.18 Random Glucose 113 H Calcium 8.7 Total Bilirubin 0.7 AST 18 ALT 31 Alkaline Phosphatase 70 Total Protein 6.4 Albumin 3.4 Urine Color Urine Appearance Urine pH Ur Specific [place] Urine Protein Urine Glucose (UA) Urine Ketones Urine Blood Urine Nitrite Urine Bilirubin Urine Urobilinogen Ur Leukocyte Esterase RPR Titer Nonreactive 11/02/18 16:09 WBC RBC Hgb Hct MCV MCH MCHC RDW Plt Count MPV Sodium Potassium Chloride Carbon Dioxide Anion Gap BUN Creatinine Est GFR (CKD-EPI)AfAm Est GFR (CKD-EPI)NonAf Random Glucose Calcium Total Bilirubin AST ALT Alkaline Phosphatase Total Protein Albumin Urine Color Dk yellow Urine Appearance Turbid Urine pH 5.0 Ur Specific [place] 1.032 Urine Protein Trace Urine Glucose (UA) Negative Urine Ketones Trace H Urine Blood Negative Urine Nitrite Negative Urine Bilirubin 1+ H Urine Urobilinogen 1.0 Ur Leukocyte Esterase Negative RPR Titer labs reviewed continue to monitor
[2018-11-03] MEDS: THIAMINE HCL 100 MG TABLET (FP) PO SCH (21:10)
[2018-11-04] MEDS: IBUPROFEN 400 MG TABLET (FP) PO PRN ×2 (06:33→12:37)
[2018-11-04] MEDS: PRENATAL VITAMINS W/ FOLIC ACID TABLET (FP) PO SCH (10:14)
[2018-11-04] MEDS: THIAMINE HCL 100 MG TABLET (FP) PO SCH (22:07)
[2018-11-05 06:34] VITALS: PULSE 53
[2018-11-05] MEDS: IBUPROFEN 400 MG TABLET (FP) PO PRN ×2 (07:28→14:56)
[2018-11-05] MEDS: PRENATAL VITAMINS W/ FOLIC ACID TABLET (FP) PO SCH (10:22)
[2018-11-05] MEDS: THIAMINE HCL 100 MG TABLET (FP) PO SCH (23:22)
[2018-11-06] MEDS: IBUPROFEN 400 MG TABLET (FP) PO PRN (05:43)
[2018-11-06 06:56] VITALS: BP 161/79; TEMP 98.6
--- NOTE | 2018-11-06 12:27 | PN ---
[facility] Progress Note Note: Reports from nurse that this patient had left AMA earlier this morning. This marketing underwriter did not encounter with patient before leaving today. Pt's intention to sign out was made aware to provider on duty(please see nurse's discharge note).
== END 2018-11-06 07:20 | disposition left against medical advice (07) | DRG 770 ==
LOC: YASAS 10:29 → Y5N 14:21
PROVIDERS: ADMIT Neuromusculoskeletal Medicine & OMM; ATTEND Neuromusculoskeletal Medicine & OMM
PROC: HZ42ZZZ Group Counseling for Substance Abuse Treatment, Cognitive-Behavioral (ICD-10-PCS; principal; 2018-11-02)
DX: F10.20 Alcohol dependence, uncomplicated (principal); F14.20 Cocaine dependence, uncomplicated; F17.210 Nicotine dependence, cigarettes, uncomplicated
CPT/HCPCS: 36415; 80053; 81003; 85027; 86593

== ENCOUNTER 2019-01-09 08:08 | Inpatient (IN) | payer OTHER ==
[2019-01-09 09:39] VITALS: BMI 30.8
--- NOTE | 2019-01-09 10:19 | HP ---
CIWA Score Nausea/Vomitin-No Nausea/No Vomiting Muscle Tremors: 4-Moderate,w/Arms Extend Anxiety: 2 Agitation: 1-Slight > Activity Paroxysmal Sweats: No Perspiration Orientation: 0-Oriented Tacttile Disturbances: 2-Mild Itch/Numbness/Burn Auditory Disturbances: 2-Mild Harshness/Frighten Visual Disturbances: 2-Mild Sensitivity Headache: 0-None Present CIWA-Ar Total Score: 13 - Admission Criteria OASAS Guidelines: Admission for Medically Managed Detox: Requires at least one of the followin. CIWA greater than 12 2. Seizures within the past 24 hours 3. Delirium tremens within the past 24 hours 4. Hallucinations within the past 24 hours 5. Acute intervention needed for co occurring medical disorder 6. Acute intervention needed for co occurring psychiatric disorder 7. Severe withdrawal that cannot be handled at a lower level of care (continued vomiting, continued diarrhea, abnormal vital signs) requiring intravenous medication and/or fluids 8. 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 cocaine - 20 $ every other day denies ivdu cannabis - every other day . denies other illicits tobacco : 8 cigs/day pmhx : htn not on meds , does not see PCP pshx : r hand , cervical lipoma psych : depression , denies SI / HI - Ebola screening Have you traveled outside of the country in the last 21 days: No (N) Have you had contact with anyone from an Ebola affected area: No Do you have a fever: No - Review of Systems Constitutional: See HPI EENT: reports: No Symptoms Reported Respiratory: reports: No Symptoms reported Cardiac: reports: No Symptoms Reported GI: reports: No Symptoms Reported : reports: No Symptoms Reported Musculoskeletal: reports: Back Pain (chronic LBP) Integumentary: reports: No Symptoms Reported Neuro: reports: See HPI Endocrine: reports: No Symptoms Reported Psychiatric: reports: No Sypmtoms Reported, Orientated x3, Anxious Patient History - Patient Medical History Hx Anemia: No Hx Asthma: No Hx Chronic Obstructive Pulmonary Disease (COPD): No Hx Cancer: No Hx Cardiac Disorders: No Hx Congestive Heart Failure: No Hx Hypertension: Yes (On norvasc, hctz) Hx Hypercholesterolemia: No Hx Pacemaker: No HX Cerebrovascular Accident: No Hx Seizures: No Hx Dementia: No Hx Diabetes: No Hx Gastrointestinal Disorders: No Hx Liver Disease: No Hx Genitourinary Disorders: No Hx Sexually Transmitted Disorders: No Hx Renal Disease (ESRD): No Hx Thyroid Disease: No Hx Human Immunodeficiency Virus (HIV): No (NEGATIVE HX LAST 2012) Hx Hepatitis C: No Hx Depression: Yes (NO MED) Hx Suicide Attempt: No Hx Bipolar Disorder: No Hx Schizophrenia: No - Patient Surgical History Past Surgical History: Yes Hx Neurologic Surgery: No Hx Cataract Extraction: No Hx Cardiac Surgery: No Hx Lung Surgery: No Hx Breast Surgery: No Hx Breast Biopsy: No Hx Abdominal Surgery: No Hx Appendectomy: No Hx Cholecystectomy: No Hx Genitourinary Surgery: No Hx Section: No Hx Orthopedic Surgery: Yes (05/19 right hand surgery - pins inserted) Other Surgical History: LIPOMA BACK OF HEAD Anesthesia Reaction: No - PPD History Date: 09/04/18 Results: 0 mm - Smoking Cessation Smoking history: Current every day smoker Have you smoked in the past 12 months: Yes Aproximately how many cigarettes per day: 10 Cigars Per Day: 0 Hx Chewing Tobacco Use: No Initiated information on smoking cessation: No - Substances abused Alcohol Substance route: Oral Frequency: Daily Amount used: 2 40OZ BEER, Age of first use: 19 Date of last use: 01/09/19 Cocaine Substance route: Smoking Frequency: 3-6 times per week Amount used: $20 Age of first use: 22 Date of last use: 01/07/19 Family Disease History - Family Disease History Family Disease History: Other: Father (etoh) Admission Physical Exam [facility] - Vital Signs Vital Signs: Vital Signs - 24 hr 01/09/19 01/09/19 09:00 09:39 Temperature 97.4 F L 97.4 F L Pulse Rate 54 L 54 L Respiratory 18 18 Rate Blood Pressure 150/94 150/94 - Physical General Appearance: Yes: Mild Distress, Tremorous, Anxious HEENTM: Yes: EOMI, Hearing grossly Normal, Normocephalic, Normal Voice Respiratory: Yes: Chest Non-Tender, Lungs Clear, Normal Breath Sounds, No Respiratory Distress, No Accessory Muscle Use Neck: Yes: No masses,lesions,Nodules, Trachea in good position Cardiology: Yes: Regular Rhythm, Regular Rate, S1, S2 Abdominal: Yes: Non Tender, Soft Musculoskeletal: Yes: Gait Steady Extremities: Yes: Normal Range of Motion, Non-Tender, Tremors Neurological: Yes: Fully Oriented, Alert, Motor Strength 5/5 Integumentary: Yes: Warm - Diagnostic (1) Cannabis dependence Current Visit: Yes Status: Chronic (2) Alcohol dependence with uncomplicated withdrawal Current Visit: Yes Status: Chronic (3) Cocaine dependence, uncomplicated Current Visit: Yes Status: Chronic (4) Nicotine dependence Current Visit: Yes Status: Chronic Qualifiers: Nicotine product type: cigarettes Breathalyzer - Breathalyzer Breathalyzer: 0 Urine Drug Screen - Test Device Lot number: [id number] Expiration date: 09/29/20 - Control Is test valid?: Yes - Results Drug screen NEGATIVE: No Urine drug screen results: THC-Marijuana, KRISTA-Cocaine Inpatient Rehab Admission - Rehab Decision to Admit Inpatient rehab admission?: No
[2019-01-09] MEDS ORDERED: MAG HYDROX/AL HYDROX/SIMETH 30 ML UNIT-DOSE CUP PO PRN (10:21)
[2019-01-09] MEDS ORDERED: MENTHOL/PHENOL 1 EACH UD MM PRN (10:21)
[2019-01-09] MEDS ORDERED: ACETAMINOPHEN 325 MG TABLET (FP) PO PRN ×2 (10:21)
[2019-01-09] MEDS ORDERED: BISMUTH SUBSALICYLATE 262 MG/15 ML BTL PO PRN (10:21)
[2019-01-09] MEDS ORDERED: MAGNESIUM HYDROX 2400MG/30ML ORAL SUSPENSION 30 ML CUP PO PRN (10:21)
[2019-01-09] MEDS ORDERED: MELATONIN 5 MG TABLETS PO PRN (10:21)
[2019-01-09] MEDS ORDERED: NICOTINE POLACRILEX 2 MG GUM BUC PRN (10:21)
[2019-01-09] MEDS ORDERED: MAGNESIUM CITRATE 300 ML BOTTLE PO PRN (10:21)
[2019-01-09] MEDS ORDERED: hydrOXYzine PAMOATE 25 MG CAPSULE (FP) PO PRN (10:21)
[2019-01-09] MEDS ORDERED: chlordiazePOXIDE HCL 10 MG CAPSULE PO PRN (10:22)
[2019-01-09] MEDS: METHOCARBAMOL 500 MG TABLET PO PRN ×2 (11:44→22:36)
[2019-01-09] MEDS: chlordiazePOXIDE HCL 25 MG CAPSULE PO SCH ×2 (12:00→22:35)
[2019-01-09] MEDS: THIAMINE HCL 100 MG TABLET (FP) PO SCH (22:35)
[2019-01-10] MEDS: chlordiazePOXIDE HCL 25 MG CAPSULE PO SCH ×3 (06:39→22:07)
[2019-01-10] MEDS: METHOCARBAMOL 500 MG TABLET PO PRN (06:42)
[2019-01-10] MEDS: IBUPROFEN 400 MG TABLET (FP) PO PRN (06:42)
[2019-01-10] MEDS ORDERED: PRENATAL VITAMINS W/ FOLIC ACID TABLET (FP) PO SCH (10:00)
--- NOTE | 2019-01-10 10:25 | PN ---
S CIWA - CIWA Score Nausea/Vomitin-Mild Nausea/No Vomiting Muscle Tremors: 2 Anxiety: 2 Agitation: 2 Paroxysmal Sweats: 1-Minimal Palms Moist Orientation: 0-Oriented Tacttile Disturbances: 0-None Auditory Disturbances: 0-None Visual Disturbances: 0-None Headache: 2-Mild CIWA-Ar Total Score: 10 [facility] Progress Note (SOAP) Subjective: 53 years old male multiple patient patient [facility] admission since 2010 was admitted on 01/09/19 for alcohol withdrawal sx management doing well with librium detox regimen history of hypertension treated with amlodipine hctz lisinorpil follow up with primary care provider regularly and prefers flexeril as muscles spasm release agent Objective: 01/10/19 10:29 Vital Signs Temperature 97.1 F L 01/10/19 09:15 Pulse Rate 50 L 01/10/19 09:15 Respiratory Rate 18 01/10/19 09:15 Blood Pressure 149/80 01/10/19 09:15 O2 Sat by Pulse Oximetry (%) 01/10/19 10:29 lab pending Assessment: 01/10/19 10:29 alcohol withdrawal sx Plan: continue libirum detox regimen
[2019-01-10] MEDS ORDERED: amLODIPine BESYLATE 10 MG TABLET (FP) PO SCH (10:30)
[2019-01-10] MEDS ORDERED: HYDROCHLOROTHIAZIDE 12.5 MG CAPSULE (FP) PO SCH (10:30)
[2019-01-10] MEDS: LISINOPRIL 10 MG TABLET (FP) PO SCH ×2 (11:18→22:07)
[2019-01-10] MEDS: CYCLOBENZAPRINE HCL 5 MG TABLET PO PRN ×2 (11:18→22:07)
[2019-01-10 12:35] LABS: ALBUMIN 3.6 g/dl (3.4-5.0); BILIRUBIN,TOTAL 0.6 mg/dL (0.2-1); CALCIUM 9.2 mg/dL (8.5-10.1); CREATININE 1.3 mg/dL (0.55-1.3); POTASSIUM 4.4 mmol/L (3.5-5.1); TOT PROT 6.8 g/dl (6.4-8.2)
[2019-01-10 12:36] LABS: HEMATOCRIT 42.5 % (35.4-49); MCH 29.5 pg (25.7-33.7); MEAN CELL VOLUME 89.5 fl (80-96); MEAN PLT VOLUME 10.7 fl (7.5-11.1); PLATELET COUNT 165 K/MM3 (134-434); RBC 4.75 M/mm3 (4.00-5.60); RDW 13.6 % (11.9-15.9); WHITE BLOOD COUNT 4.3 K/mm3 (4.0-10.0)
[2019-01-10 21:12] VITALS: BP 138/85; PULSE 48; TEMP 98.2
[2019-01-10] MEDS: THIAMINE HCL 100 MG TABLET (FP) PO SCH (22:07)
[2019-01-11] MEDS ORDERED: chlordiazePOXIDE 5 MG CAPSULE PO SCH (05:00)
[2019-01-11] MEDS: IBUPROFEN 400 MG TABLET (FP) PO PRN (05:35)
--- NOTE | 2019-01-11 06:26 | DS ---
[facility] Detox Discharge Summary Admission Date: 01/09/19 Discharge Date: 01/11/19 - History Present History: Alcohol Dependence, Cannabis Dependence Pertinent Past History: Laboratory Tests 01/10/19 01/10/19 01/10/19 09:00 09:00 09:00 WBC 4.3 RBC 4.75 Hgb 14.0 Hct 42.5 MCV 89.5 MCH 29.5 MCHC 33.0 RDW 13.6 Plt Count 165 MPV 10.7 Sodium 142 Potassium 4.4 Chloride 110 H Carbon Dioxide 28 Anion Gap 4 L BUN 16.0 Creatinine 1.3 Est GFR (CKD-EPI)AfAm 72.71 Est GFR (CKD-EPI)NonAf 62.73 Random Glucose 103 Calcium 9.2 Total Bilirubin 0.6 AST 25 ALT 36 Alkaline Phosphatase 73 Total Protein 6.8 Albumin 3.6 RPR Titer Nonreactive HIV 1&2 Antibody Screen HIV P24 Antigen 01/10/19 09:25 WBC RBC Hgb Hct MCV MCH MCHC RDW Plt Count MPV Sodium Potassium Chloride Carbon Dioxide Anion Gap BUN Creatinine Est GFR (CKD-EPI)AfAm Est GFR (CKD-EPI)NonAf Random Glucose Calcium Total Bilirubin AST ALT Alkaline Phosphatase Total Protein Albumin RPR Titer HIV 1&2 Antibody Screen Negative HIV P24 Antigen Negative Vital Signs - 24 hr 01/10/19 01/10/19 01/10/19 06:26 09:15 13:34 Temperature 97.2 F L 97.1 F L 98.5 F Pulse Rate 51 L 50 L 46 L Respiratory 18 18 18 Rate Blood Pressure 149/90 149/80 169/96 01/10/19 01/10/19 01/11/19 17:21 21:12 00:30 Temperature 98.6 F 98.2 F Pulse Rate 50 L 48 L Respiratory 16 18 18 Rate Blood Pressure 135/78 138/85 - Physical Exam Results Vital Signs: Vital Signs Temperature 98.2 F 01/10/19 21:12 Pulse Rate 48 L 01/10/19 21:12 Respiratory Rate 18 01/11/19 00:30 Blood Pressure 138/85 01/10/19 21:12 O2 Sat by Pulse Oximetry (%) Pertinent Admission Physical Exam Findings: req ama dc risks reviewed nonetheless desires departure - Treatment Hospital Course: Detox Protocol Followed - Medication Discharge Medications: Ambulatory Orders Amlodipine Besylate [Norvasc -] 10 mg PO DAILY #14 tablet 09/04/18 Hydrochlorothiazide [Hctz -] 12.5 mg PO DAILY #30 cap 09/04/18 Lisinopril 10 mg PO BID 09/05/18 - AMA Did Patient Leave Against Medical Advice: Yes
[2019-01-12] MEDS ORDERED: chlordiazePOXIDE HCL 10 MG CAPSULE PO PRN
[2019-01-12] MEDS ORDERED: chlordiazePOXIDE HCL 10 MG CAPSULE PO SCH (05:00)
[2019-01-13] MEDS ORDERED: chlordiazePOXIDE HCL 10 MG CAPSULE PO ONE (05:00)
== END 2019-01-11 06:45 | disposition left against medical advice (07) | DRG 770 ==
LOC: YASAS 08:08 → Y3N 10:37
PROVIDERS: ADMIT Surgery; ATTEND Surgery
PROC: HZ2ZZZZ Detoxification Services for Substance Abuse Treatment (ICD-10-PCS; principal; 2019-01-09)
DX: F10.230 Alcohol dependence with withdrawal, uncomplicated (principal); F14.20 Cocaine dependence, uncomplicated; F12.20 Cannabis dependence, uncomplicated; F17.210 Nicotine dependence, cigarettes, uncomplicated; I10 Essential (primary) hypertension
CPT/HCPCS: 36415; 80053; 85027; 86593; 87389